=== PATIENT | male | born 1975 | race Caucasian/White ===

== ENCOUNTER 2020-04-15 11:07 | Outpatient (REF) | payer OTHER, SELFPAY ==
[2020-04-15 12:38] LABS: Alanine Aminotransferase 24 U/L (0-40); Albumin Level 4.7 g/dL (3.5-5.0); Alkaline Phosphatase 58 U/L (39-117); Anion Gap 11 (12-20); Aspartate Amino Transferase 18 U/L (5-37); Bilirubin Total 0.6 mg/dL (0.0-1.0); Blood Urea Nitrogen 17 mg/dL (9-16); Calcium 9.5 mg/dL (8.4-10.2); Carbon Dioxide 31 mmol/L (22-29); Chloride 103 mmol/L (96-108); Cholesterol 191 mg/dL; Estimated Glomerular Filt Rate > 60; Glucose Random 94 mg/dL (60-115); HDL Cholesterol 41 mg/dL; LDL Cholesterol Calculated 130 mg/dl; Sodium 140 mmol/L (135-145); Total Protein 7.9 g/dL (6.5-8.0); Triglycerides 100 mg/dL
== END 2020-04-15 11:08 | disposition home or self-care (01) ==
LOC: HO.LAB 11:07
PROVIDERS: Visit Provider Physician Assistant Medical
DX: E78.00 Pure hypercholesterolemia, unspecified (principal)
CPT/HCPCS: 80053; 80061

== ENCOUNTER 2022-11-03 13:04 | Outpatient (AMB) | payer OTHER, SELFPAY ==
--- NOTE | 2022-11-03 13:09 | A.OFFPC_ITS ---
Vital Signs 11/03/22 13:10 Height 5 ft 6 in Weight 207 lb BMI 33.4 BP 128/68 Blood Pressure Location Lt brachial Position Sitting Pulse 103 H Pulse Source Pulse Oximeter Pulse Oximetry (%) 98 Oxygen Delivery Method Room Air Intake Visit Reasons: NPV- requesting PHY Allergies No Known Allergies [No Known Allergies*] Allergy (Verified 11/03/22 13:10) Medication List - Last Reconciled 11/03/22 by Jim Prather MD almotriptan malate 12.5 mg PO Q2-4H PRN clonazepam 0.5 mg PO BID methylphenidate HCl ER 54 mg PO DAILY Tobacco use date assessed: 11/03/22 Dental Screening Dental Screen Date: 11/03/22 Did you have a dental visit in the last 12 months?: Yes Did you have a dental problem in the last 6 months where you did not have access to dental care?: No Was dental information given to patient?: Patient has dentist HPI NPV- requesting PHY HPI Details 47-year-old obese male with a history of migraine, ADHD coming in for the 1st time. Review of the notes had fall from the stairs in 2017 sustaining right multiple rib fractures patient also has a history of cholelithiasis. due to alcohol- does binge- L ear poor hearing but had test nothing to do. [facility] Medical History (Updated 11/03/22 @ 13:50 by Jim Prather MD) Multiple rib fractures Surgical History (Updated 11/03/22 @ 13:34 by Jim Prather MD) Cholelithiasis [place] teeth extracted Family History (Updated 11/03/22 @ 13:36 by Jim Prather MD) Father COPD (chronic obstructive pulmonary disease) Mother Asthma Skin cancer Maternal Grandfather Myocardial infarct Maternal Grandmother Skin cancer Breast CA Social History (Updated 11/03/22 @ 13:37 by Jim Prather MD) Housing: House Alcohol intake: current Patient Tobacco Use Status: Never used Tobacco e-Cigarette/Vaping Use: Never Used Second Hand Smoke Exposure: No Current occupational status: employed Current occupational exposures/hazards: No Cognitive needs: No Hearing needs: No Vision needs: No Questionnaire Thrive Questionnaire Date Thrive assessed: 11/03/22 I am a: Patient What is your living situation today?: I have a steady place to live Within the past 12 months, did the food you bought not last and you didn't have the money to get more?: Never true Within the past 12 months, did you worry whether your food would run out before you got money to buy more?: Never true Do you have trouble paying for medicines?: No Do you have trouble getting transportation to medical appointments?: No Do you have trouble paying your heating and electricity bill?: No Do you have trouble taking care of your child, family member or friend?: No Do you have trouble with day-to-day activities such as bathing, preparing meals, shopping, managing finances, etc.?: No Are you currently unemployed and looking for a job?: No Are you interested in more education?: No Currently or been in a relationship where the following occur: no concerns reported AUDIT C Alcohol Use Questionnaire (AUDIT-C) 1. How often do you have a drink containing alcohol?: Monthly or less 2. How many drinks containing alcohol do you have on a typical day when you are drinking?: 1 or 2 3. How often do you have six or more drinks on one occasion?: Never Total Score: 1 FRANKI-7 AMB Questionnaire FRANKI-7 Date FRANKI - 7 assessed: 11/03/22 Feeling nervous, anxious, or on edge: 1 = Several days Not being able to stop or control worryin = Not at all Worrying too much about different things: 0 = Not at all Trouble relaxin = Not at all Being so restless that it is hard to sit still: 0 = Not at all Becoming easily annoyed or irritable: 0 = Not at all Feeling afraid as if something awful might happen: 0 = Not at all Total FRANKI-7 score (0-4 normal; 5-9 mild; 10-14 moderate; 15-21 severe): 1 Source: Developed by Drs. Mendoza Stewart, Blanca Smyth, Kemal Pryor and colleagues, with an educational maggie from [employer]. Review of Systems Const Denies poor appetite and Denies weakness Eyes Denies no additional complaints ENT Reports Normal hearing present, Denies dizziness, Denies nasal congestion, Denies tinnitus and Denies sore throat Card Denies chest pain, Denies syncope, Denies rapid heart rate and Denies dyspnea Resp Denies cough and Denies dyspnea GI Denies change in stool character, Reports constipation, Denies diarrhea, Denies nausea and Denies vomiting Denies dysuria and Denies urinary frequency Neuro Reports Normal hearing present, Denies confusion, Denies dizziness, Denies syncope and Denies weakness Psych Denies confusion Physical exam (Primary Care) Vital Signs: Last Vital Signs Pulse 103 H 11/03/22 13:10 BP 128/68 11/03/22 13:10 Pulse Ox 98 11/03/22 13:10 Oxygen Delivery Method Room Air 11/03/22 13:10 Care Plan Goal for BP management: Pigment nevi on the back multiple(declined referral for Dermatology) BMI result Body Mass Index 33.4 Tobacco/Smoking Status: Tobacco use Status Tobacco use date assessed 11/03/22 11/03/22 13:21 Patient Tobacco Use Status Never used Tobacco 11/03/22 13:21 e-Cigarette/Vaping Use Never Used 11/03/22 13:21 Thrive Assessment: Date of Thrive Assessment Date Thrive assessed 11/03/22 11/03/22 13:21 Currently or been in a relationship where the following occur: no concerns reported Const General: No confusion Orientation/consciousness: No confusion HENMT Head: Yes normocephalic Ears: external ears normal and TM's normal bilaterally Face and sinus: Yes normal facial exam Mouth: moist mucous membranes Throat: Yes tonsils normal Eyes Conjunctivae: conjunctivae normal Pupils: Equal, round and reactive pupils present and Pupil accommodation reflex normal Direct Ophthalmoscopy: normal light reflex Neck Neck: No lymphadenopathy Thyroid: Thyroid normal Chest Chest palpation & inspection: normal inspection of the chest Resp Effort & Inspection: normal respiratory effort and no audible wheezes Auscultation: clear to auscultation bilaterally, no crackles, no wheezes and lung sounds not diminished Cardio Rate: regular rate Rhythm: regular rhythm Peripheral pulses: radial pulses present and dorsalis pedis present GI Other: Visual negative rectal Palpation (GI): no masses Auscultation: normal bowel sounds and normoactive bowel sounds Rectal Exam - Male: Yes deferred Male General Exam: Yes normal external exam Skin General skin exam: no rashes or lesions noted Rashes: no rashes Neuro General: No confusion Cranial nerves: Yes Equal, round and reactive pupils present and Yes Normal hearing present Cognition (Neuro): normal cognition Gait exam (Neuro): Normal gait present Motor exam (neuro): 5/5 motor strength present throughout Deep tendon reflexes (DTR's): Right brachioradialis reflex intensity grade: 2+, Left brachioradialis reflex intensity grade: 2+, Right patellar reflex intensity grade: 2+ and Left patellar reflex intensity grade: 2+ Extrem General: No edema Assessment and Plan Assessment & Plan (1) Annual physical exam: Code(s): Z00.00 - Encounter for general adult medical examination without abnormal findings (2) ADHD: Comment: Foot it Code(s): F90.9 - Attention-deficit hyperactivity disorder, unspecified type (3) Hypercholesterolemia: Code(s): E78.00 - Pure hypercholesterolemia, unspecified Plan: Avoid fried foods, chicken skin, eggs, butter margarine, pastries and meat. Be it pork or beef they have a lot of cholesterol LDL goal of less than 130 and triglyceride of less than 150 (4) Obesity (BMI 30-39.9): Code(s): E66.9 - Obesity, unspecified Plan: Diet and exercise (5) Migraine: Code(s): G43.909 - Migraine, unspecified, not intractable, without status migrainosus Plan: Keep well hydrated continue with medication (6) Colon cancer screening: Code(s): Z12.11 - Encounter for screening for malignant neoplasm of colon (7) Recurrent major depression: Comment: foot it Code(s): F33.9 - Major depressive disorder, recurrent, unspecified (8) Generalized anxiety disorder: Comment: footit Code(s): F41.1 - Generalized anxiety disorder (9) Cough: Code(s): R05.9 - Cough, unspecified Orders: Orders Vitamin B12 and Folate Today E78.00 - Pure hypercholesterolemia, unspecified Comprehensive Met. Panel Today E78.00 - Pure hypercholesterolemia, unspecified Lipid Panel Today E78.00 - Pure hypercholesterolemia, unspecified Free T4 (Free Thyroxine) Today E78.00 - Pure hypercholesterolemia, unspecified Thyroid Stimulating Hormone Today E78.00 - Pure hypercholesterolemia, unspecified Complete Blood Count Auto Diff Today E78.00 - Pure hypercholesterolemia, unspecified XR chest 2V Today R05.9 - Cough, unspecified ECG 12 lead EKG Today F90.9 - Attention-deficit hyperactivity disorder, unspecified type Referrals Gastroenterology Referral Z12.11 - Encounter for screening for malignant neoplasm of colon Medications: New almotriptan malate 12.5 mg PO .QD PRN 12 tabs 5RF migraine headache G43.909 - Migraine, unspecified, not intractable, without status migrainosus Coding Level of Care Code New Pt Prev Care 40-64y(52114) Diagnoses Annual physical exam Z00.00 ADHD F90.9 Hypercholesterolemia E78.00 Obesity (BMI 30-39.9) E66.9 Migraine G43.909 Colon cancer screening Z12.11 Recurrent major depression F33.9 Generalized anxiety disorder F41.1 Cough R05.9
[2022-11-03 13:10] VITALS: BP 128/68; PULSE 103; O2SAT 98; BMI 33.4
== END 2022-11-03 14:12 | disposition home or self-care (01) ==
PROVIDERS: PCP Internal Medicine; Visit Provider Internal Medicine
DX: Z00.00 Encounter for general adult medical examination without abnormal findings (principal); F90.9 Attention-deficit hyperactivity disorder, unspecified type; E66.9 Obesity, unspecified; Z68.33 Body mass index [BMI] 33.0-33.9, adult; F33.9 Major depressive disorder, recurrent, unspecified; G43.909 Migraine, unspecified, not intractable, without status migrainosus; E78.00 Pure hypercholesterolemia, unspecified; Z12.11 Encounter for screening for malignant neoplasm of colon; F41.1 Generalized anxiety disorder; R05.9 Cough, unspecified
CPT/HCPCS: 99386

== ENCOUNTER 2023-02-22 07:24 | Outpatient (REF) | payer OTHER, SELFPAY ==
--- NOTE | ~2023-02-22 | XR_ITS ---
EXAMINATION: XR CHEST CLINICAL INFORMATION: Cough COMPARISON: None available. TECHNIQUE: 2 views of the chest were obtained. FINDINGS: No significant abnormality is noted involving the heart, lungs, mediastinum, bony thorax or soft tissues. XR/XR chest 2V IMPRESSION: Normal chest x-ray.
--- NOTE | 2023-02-22 08:28 | ECG_ITS ---
Test Reason : ATTENTION DEF D/O Blood Pressure : / mmHG Vent. Rate : 066 BPM Atrial Rate : 066 BPM P-R Int : 182 ms QRS Dur : 086 ms QT Int : 404 ms P-R-T Axes : 030 012 015 degrees QTc Int : 423 ms Normal sinus rhythm Normal ECG When compared with ECG of 27-MAR-2014 07:28, No significant change was found Referred By: Jim Prather Electronically Signed By:HALIMA MULLEN MD
== END 2023-02-22 07:25 | disposition home or self-care (01) ==
LOC: HO.XRAY 07:24
PROVIDERS: PCP Internal Medicine; Visit Provider Physician Assistant
DX: R05.9 Cough, unspecified (principal); F90.9 Attention-deficit hyperactivity disorder, unspecified type
CPT/HCPCS: 71046; 93005

== ENCOUNTER 2023-02-22 07:24 | Outpatient (AMB) | payer OTHER, SELFPAY ==
[2023-02-22 07:45] VITALS: BP 146/83; PULSE 79; BMI 33.9
--- NOTE | 2023-02-22 07:45 | MHC.OFFVIS ---
Intake Vital Signs 02/22/23 07:45 Height 5 ft 6 in Weight 210 lb BMI 33.9 BP 146/83 H Blood Pressure Location Lt brachial Position Sitting Pulse 79 Intake Visit Reasons: Colonoscopy screening Intake Note: Patient 1st pre colonoscopy screening. Patient denies any GI issues. 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 No ardiac issues. Having CXR- ordered by pcp-cough No N/V/D abdominal pain, fever or chills PFSH Medical History Multiple rib fractures Surgical History [place] teeth extracted Cholelithiasis Family History Father COPD (chronic obstructive pulmonary disease) Mother Asthma Skin cancer Maternal Grandfather Myocardial infarct Maternal Grandmother Skin cancer Breast CA Social History Housing: House Alcohol intake: current Patient Tobacco Use Status: Never used Tobacco e-Cigarette/Vaping Use: Never Used Second Hand Smoke Exposure: No Current occupational status: employed Current occupational exposures/hazards: No Cognitive needs: No Hearing needs: No Vision needs: No Review of Systems Const All systems reviewed & are unremarkable except as noted in HPI and below Card Denies chest pain Resp Reports cough GI Denies abdominal pain, Denies bloating, Denies hematochezia, Denies change in bowel habits, Denies heartburn, Denies nausea and Denies vomiting Physical Exam Vital Signs: Last Vital Signs Pulse 79 02/22/23 07:45 BP 146/83 H 02/22/23 07:45 BMI result Body Mass Index 33.9 Const General: cooperative, healthy appearing, comfortable and no acute distress Orientation/consciousness: patient oriented x3 Limitations: no limitations Eyes Sclerae: sclerae normal Resp Effort & Inspection: normal respiratory effort and able to speak in complete sentences Auscultation: clear to auscultation bilaterally, no rales, no rhonchi and no wheezes Cardio Rate: regular rate Rhythm: regular rhythm Heart sounds: S1 normal heart sound present and S2 normal heart sound present GI Palpation (GI): Soft to palpation and nontender Auscultation: normal bowel sounds Skin General skin exam: no rashes or lesions noted Neuro General: patient oriented x3 Extrem General: Yes full ROM Psych Appearance: grossly normal and well kempt Mental Status: mental status grossly normal Speech and movement: Normal speech and movement present and Clear speech present Affect: normal affect Attitude: cooperative Thought process: Normal thought process present Thought content: Normal thought content present Insight: Good insight present (Psych) Judgement: Good judgement present (Psych) Assessment & Plan Assessment & Plan (1) Colon cancer screening: Comment: index screening colonoscopy- mg prep getting CXR- updated date- be sure pcp has result- Code(s): Z12.11 - Encounter for screening for malignant neoplasm of colon Plan colonoscopy- MG prep Orders: Orders Colonoscopy - GI Use Only Today Z12.11 - Encounter for screening for malignant neoplasm of colon XR chest 2V Today R05.9 - Cough, unspecified Medications: New bisacodyl (Dulcolax (bisacodyl)) Day before procedure, prep day Take 4 tablets by mouth upon awakening followed by large glass of water 20 mg (4 x 5 mg) PO ONCE 1 day 4 tabs 0RF colonoscopy prep Z12.11 - Encounter for screening for malignant neoplasm of colon polyethylene glycol 3350 (Miralax) Take as directed by mouth the day before your procedure. 238 grams PO ONCE 1 day PRN 238 grams 0RF laxative effect hydrocortisone 2.5% (Proctosol HC) 1 appl [place] BEDTIME PRN 30 grams 3RF hemorrhoids Patient Instructions: colonoscopy-disc procedure, rare risks,need for escort MG prep Call with concerns Coding Level of Care Code New Pt Level 3 (70932) Diagnoses Colon cancer screening Z12.11 Time Spent (min) 30
== END 2023-02-22 08:34 | disposition home or self-care (01) ==
PROVIDERS: PCP Internal Medicine; Visit Provider Physician Assistant
DX: Z12.11 Encounter for screening for malignant neoplasm of colon (principal); Z01.818 Encounter for other preprocedural examination
CPT/HCPCS: 99203

== ENCOUNTER 2023-09-05 06:44 | Day surgery (SDC) | payer OTHER, SELFPAY ==
--- NOTE | 2023-09-01 14:37 | HO.ANESPROP2 ---
Documented by User: Karime Villela NP 09/01/23 14:37 HPI - Anesthesia Eval Consult details Narrative: 48yo M for Colonoscopy PMFSH Active Problems Active Problems: All Active Problems Cough (Acute) Vision changes (Acute) Recurrent major depression (Acute) Generalized anxiety disorder (Acute) Colon cancer screening (Acute) Migraine (Acute) Obesity (BMI 30-39.9) (Acute) Hypercholesterolemia (Acute) ADHD (Acute) Annual physical exam (Acute) Past Medical History Medical History ADHD Multiple rib fractures Family History Family History Father COPD (chronic obstructive pulmonary disease) Mother Asthma Skin cancer Maternal Grandfather Myocardial infarct Maternal Grandmother Skin cancer Breast CA Surgical History Surgical History [place] teeth extracted Cholelithiasis Social History Social History Housing: House Alcohol intake: current Patient Tobacco Use Status: Never used Tobacco e-Cigarette/Vaping Use: Never Used Second Hand Smoke Exposure: No Use of substances other than those prescribed or required for medical reasons: No Are you DNR?: No Advance Directives: No Advance Directives Information Provided: Yes Current occupational status: employed Current occupational exposures/hazards: No Cognitive needs: No Hearing needs: No Vision needs: No Meds Allergies Allergy/AdvReac Type Severity Reaction Status Date / Time No Known Allergies Allergy Verified 02/22/23 07:44 [No Known Allergies*] Home Medications ?Medication ?Instructions ?Recorded ?Confirmed ?Last Taken ?Type clonazepam 0.5 mg tablet 0.5 mg PO BID 11/03/22 09/05/23 Unknown History methylphenidate HCl 54 mg 54 mg PO DAILY 11/03/22 09/05/23 Unknown History tablet,extended release 24 hr Assessment and Plan Assessment Anesthesia Assessment: Chart Reviewed Documented by User: Sadia Gibson MD 09/05/23 07:30 [facility] Past Medical History Medical History ADHD Multiple rib fractures Family History Family History Father COPD (chronic obstructive pulmonary disease) Mother Asthma Skin cancer Maternal Grandfather Myocardial infarct Maternal Grandmother Skin cancer Breast CA Family history of problems with anesthesia: No Surgical History Surgical History [place] teeth extracted Cholelithiasis History of Problems with Anesthesia: No Social History Social History Housing: House Alcohol intake: current Patient Tobacco Use Status: Never used Tobacco e-Cigarette/Vaping Use: Never Used Second Hand Smoke Exposure: No Use of substances other than those prescribed or required for medical reasons: No Are you DNR?: No Advance Directives: No Advance Directives Information Provided: Yes Current occupational status: employed Current occupational exposures/hazards: No Cognitive needs: No Hearing needs: No Vision needs: No Meds Allergies Allergy/AdvReac Type Severity Reaction Status Date / Time No Known Allergies Allergy Verified 02/22/23 07:44 [No Known Allergies*] Home Medications ?Medication ?Instructions ?Recorded ?Confirmed ?Last Taken ?Type clonazepam 0.5 mg tablet 0.5 mg PO BID 11/03/22 09/05/23 Unknown History methylphenidate HCl 54 mg 54 mg PO DAILY 11/03/22 09/05/23 Unknown History tablet,extended release 24 hr Exam Airway Mallampati Class: II TM Dist: >3cm Neck ROM: Full Heart: rrr Lungs: cta Assessment and Plan Assessment Anesthesia Assessment: Anesthesia Plan Discussed Final Anesthetic Review Family History of Problems with Anesthesia: No History of Problems with Anesthesia: No NPO: Yes ASA Class: III Final Preanesthetic Review: No Changes in Pt Med Stat, Meds/Allgs Chart Reviewed, Consent Obtained/Reviewed and Anes Risks/Benef Reviewed Patient Risk: Intermediate Procedure Risk: Low Anesthetic Plan Anesthetic Plan: MAC: Disposition: Standard PACU
[2023-09-05 07:11] VITALS: BMI 34.7
[2023-09-05 07:14] VITALS: BP 126/87; PULSE 102; RESP 18; TEMP 36.1; O2SAT 97
[2023-09-05] MEDS: Lactated Ringers 1,000 ML 100 ML IVCONT (07:30)
--- NOTE | 2023-09-05 08:18 | MHC.SHP ---
Pre-Procedural Eval Section A - 24 Hr Update-Section A only Date of Service: 09/05/23 Section B - Complete if H&P > 30 days Chief Complaint: screening Relevant Family History (Specify if Yes): No Relevant Social History: None Present Medications: see Short Stay Collaborative assessment Medical History: Significant History (Multiple rib fractures,adhd) History of Previous Operations: Relevant previous surgery/procedure and date(s) ([place] teeth extracted Cholelithiasis) Allergies: Allergies Allergy/AdvReac Type Severity Reaction Status Date / Time No Known Allergies Allergy Verified 02/22/23 07:44 [No Known Allergies*] Review of Systems Sugical H&P ROS: Negative: Constitution, Cardiovascular, Respiratory, Neurological, Psychiatric, Hem-Onc, Allergic/Immunologic, Gastrointestinal, Genitourinary, Musculoskeletal, Integumentary, Endocrine and Eyes/Ears/Nose/Throat Exam Surgical H&P Exam: Normal: HEENT, Normal: Heart, Normal: Lungs, Normal: Extremities, Normal: Abdomen, Normal: Skin and Normal: Neurological Plan Diagnosis/Plan: Unchanged I have reviewed the history and physical and performed a pertinent physical examination on my patient. No changes have occurred unless specified. Time Spent With Patient Time: Total time managing care of this patient today ____ minutes.
--- NOTE | 2023-09-05 08:20 | W.PM.OPN ---
Operative Note Operative Note Date of Service: 09/05/23 Narrative: Operative Information Procedure Description: Colonoscopy Indication: screening Anesthesia: MAC COLONOSCOPY Instrument: Olympus variable stiffness pediatric scope 190L Colonoscopy Monitoring: Vital signs and clinical assessment, continuous EKG monitoring, Pulse oximetry, Carbon Dioxide monitoring and blood pressure monitoring were done throughout the procedure. Colon withdrawal time was 10 minutes. Procedure: The patient was placed in the left lateral decubitis position and pre-procedure medications were administered. After a digital rectal examination of the ano-rectum, the video colonoscope was inserted into the rectum and advanced through the colon to the cecum/TI. The colonoscope was slowly withdrawn in a retrograde panoramic fashion and the colon mucosa was carefully examined including a retroflexed view of the rectum. Findings and interventions are described below. Procedure Difficulty: moderate, pressure applied LUQ Findings: Terminal Ileum-not intubated Cecum:normal Ascending Colon: normal Transverse Colon -normal Descending Colon:normal Sigmoid Colon: normal Rectum: Retroflexion with medium sized internal hemorrhoids seen, grade I Anorectum - normal Intervention: none Colon preparation: [place] Bowel Preparation Scale Right colon; 1-2 Transverse colon: 2 Left colon; 2 (0 = Unprepared colon segment with mucosa not seen due to solid stool that cannot be cleared. 1 = Portion of mucosa of the colon segment seen, but other areas of the colon segment not well seen due to staining, residual stool and/or opaque liquid. 2 = Minor amount of residual staining, small fragments of stool and/or opaque liquid, but mucosa of colon segment seen well. 3 = Entire mucosa of colon segment seen well with no residual staining, small fragments of stool or opaque liquid) Impression and Post Procedure Diagnosis: internal hemorrhoids Plan: High fiber diet leaflet Avoid straining at stool, epsom salts and sitz bath, anusol supps or cream Repeat Colonoscopy in 5-6 years due to fair prep right side or earlier if clinically indicated Above findings were reviewed with the patient and relevant handouts were provided if indicated.
[2023-09-05 09:00] VITALS: BP 95/72; PULSE 87; RESP 16; TEMP 36.1; O2SAT 96
[2023-09-05 09:15] VITALS: BP 104/77; PULSE 90; RESP 16; TEMP 36.1; O2SAT 96
== END 2023-09-05 09:53 | disposition home or self-care (01) ==
PROVIDERS: PCP Internal Medicine; Visit Provider Internal Medicine Gastroenterology
PROC: 0DJD8ZZ Inspection of Lower Intestinal Tract, Via Natural or Artificial Opening Endoscopic (ICD-10-PCS; CPT 45378; principal; 2023-09-05 08:20)
DX: Z12.11 Encounter for screening for malignant neoplasm of colon (principal); K64.0 First degree hemorrhoids
CPT/HCPCS: 45378; J2704

== ENCOUNTER → 2023-09-05 06:44 | Outpatient (BNV) | payer OTHER, SELFPAY | PROVIDERS: PCP Internal Medicine; Visit Provider Internal Medicine Gastroenterology | DX: Z12.11 Encounter for screening for malignant neoplasm of colon (principal); K64.0 First degree hemorrhoids | CPT/HCPCS: 45378 ==

== ENCOUNTER 2023-09-18 07:16 | Outpatient (AMB) | payer OTHER, SELFPAY ==
[2023-09-18 07:30] VITALS: BP 138/90; PULSE 93; BMI 33.9
--- NOTE | 2023-09-18 07:30 | A.OFFVIS_ITS ---
Vital Signs 09/18/23 07:30 Height 5 ft 6 in Weight 210 lb BMI 33.9 BP 138/90 H Blood Pressure Location Lt brachial Position Sitting Pulse 93 Intake Visit Reasons: s/p colon [place] Intake Note: Patient follow up for Colonoscopy results. patient denies any GI issues. 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 Accompanied by: Self / Same As Patient Allergies No Known Allergies [No Known Allergies*] Allergy (Verified 09/18/23 07:31) Medication List - Last Reconciled 09/18/23 by Dorothy La PA-C almotriptan malate 12.5 mg PO .QD PRN clonazepam 0.5 mg PO BID hydrocortisone 2.5% (Proctosol HC) 1 appl [place] BEDTIME PRN methylphenidate HCl ER 54 mg PO DAILY HPI Comments Details: Year old male follows up after index screening colonoscopy He tolerated procedure well Bowels are Appetite is good Reviewed procedure report, recommendation Known hemorrhoids happened been non issue No nausea, vomiting, hematemesis, hematochezia fever PFSH Medical History (Updated 09/18/23 @ 08:13 by Dorothy La PA-C) ADHD Multiple rib fractures Surgical History Hx of colonoscopy [place] teeth extracted Cholelithiasis Family History Father COPD (chronic obstructive pulmonary disease) Mother Asthma Skin cancer Maternal Grandfather Myocardial infarct Maternal Grandmother Skin cancer Breast CA Social History Housing: House Alcohol intake: current Patient Tobacco Use Status: Never used Tobacco e-Cigarette/Vaping Use: Never Used Second Hand Smoke Exposure: No Current occupational status: employed Current occupational exposures/hazards: No Cognitive needs: No Hearing needs: No Vision needs: No Review of Systems Const All systems reviewed & are unremarkable except as noted in HPI and below Physical Exam Vital Signs: Last Vital Signs Pulse 93 09/18/23 07:30 BP 138/90 H 09/18/23 07:30 BMI result Body Mass Index 33.9 Const General: cooperative, healthy appearing, comfortable and no acute distress Orientation/consciousness: patient oriented x3 Limitations: no limitations Neuro General: patient oriented x3 Psych Appearance: well kempt Mental Status: mental status grossly normal Speech and movement: Clear speech present Affect: normal affect Attitude: cooperative Thought process: Normal thought process present Thought content: Normal thought content present Insight: Good insight present (Psych) Judgement: Good judgement present (Psych) Assessment & Plan Assessment & Plan (1) Hemorrhoids: Code(s): K64.9 - Unspecified hemorrhoids Category: Medical Plan: Avoid straining Maintain high-fiber Plan Repeat asymptomatic colonoscopy 5 years-reminder to be placed Patient Instructions: Repeat asymptomatic colonoscopy 5 years Maintain high-fiber diet Avoid straining with hemorrhoid Call with concerns Coding Level of Care Code Est Pt Level 3 (10720) Diagnoses Hemorrhoids K64.9 Time Spent (min) 15
== END 2023-09-18 08:24 | disposition home or self-care (01) ==
PROVIDERS: PCP Internal Medicine; Visit Provider Physician Assistant
DX: K64.9 Unspecified hemorrhoids (principal)
CPT/HCPCS: 99213

== ENCOUNTER → 2023-09-18 07:16 | Outpatient (BNVA) | payer OTHER, SELFPAY | PROVIDERS: PCP Internal Medicine; Visit Provider Physician Assistant ==

== ENCOUNTER 2023-11-08 12:27 | Outpatient (AMB) | payer BC, SELFPAY ==
[2023-11-08 12:36] VITALS: BP 118/78; PULSE 94; O2SAT 98; BMI 34.7
--- NOTE | 2023-11-08 12:36 | A.OFFPC_ITS ---
Vital Signs 11/08/23 12:36 Height 5 ft 6 in Weight 215 lb BMI 34.7 BP 118/78 Blood Pressure Location Lt brachial Position Sitting Pulse 94 Pulse Source Pulse Oximeter Pulse Oximetry (%) 98 Oxygen Delivery Method Room Air Intake Visit Reasons: pe Allergies No Known Allergies [No Known Allergies*] Allergy (Verified 11/08/23 12:36) Medication List - Last Reconciled 11/08/23 by Jim Prather MD almotriptan malate 12.5 mg PO .QD PRN clonazepam 0.5 mg PO BID hydrocortisone 2.5% (Proctosol HC) 1 appl [place] BEDTIME PRN methylphenidate HCl ER 54 mg PO DAILY Tobacco use date assessed: 11/08/23 Dental Screening Dental Screen Date: 11/08/23 Did you have a dental visit in the last 12 months?: Yes Did you have a dental problem in the last 6 months where you did not have access to dental care?: No Was dental information given to patient?: Patient has dentist HPI pe HPI Details 48-year-old obese male with hypercholest erolemia migraine recurrent major depression coming in for physical exam last seen in October 2022. Patient is up-to-date with colonoscopy but due to the fair prep advised to repeat in 5-6 years. . nausea once amonth. once a month gerd. Patient has mentioned that the therapist/nurse practitioner who has been taking care of his anxiety and depression medication is soon to be retiring. And was asking for me to take over. Discussed with the patient that I would really need the letter from him as well as basically discussed with him the role of clonazepam. Patient also was found to have alcohol abuse and discussed with him that this needs to stop. He has been using alcohol to help him with sleep and finishes 30 bottles of beer in 1 and half weeks. [facility] Medical History (Updated 11/08/23 @ 13:17 by Jim Prather MD) Cough Colon cancer screening ADHD Multiple rib fractures Surgical History Hx of colonoscopy [place] teeth extracted Cholelithiasis Family History Father COPD (chronic obstructive pulmonary disease) Mother Asthma Skin cancer Maternal Grandfather Myocardial infarct Maternal Grandmother Skin cancer Breast CA Social History (Updated 11/08/23 @ 12:57 by Jim Prather MD) Housing: House Alcohol intake: current Comment: QD alcohol 30 drinks 1.5 weeks Patient Tobacco Use Status: Never used Tobacco Tobacco use type: Cigarette e-Cigarette/Vaping Use: Never Used Second Hand Smoke Exposure: No Current occupational status: employed Current occupational exposures/hazards: No Cognitive needs: No Hearing needs: No Vision needs: Yes Questionnaire PHQ-9 Over the last 2 weeks, how often have you been bothered by any of the following problems? 1. Little interest or pleasure in doing things: not at all 2. Feeling down, depressed, or hopeless: not at all 3. Trouble falling or staying asleep, or sleeping too much: not at all 4. Feeling tired or having little energy: not at all 5. Poor appetite or overeating: not at all 6. Feeling bad about yourself - or that you are a failure or have let yourself or your family down: not at all 7. Trouble concentrating on things, such as reading the newspaper or watching television: not at all 8. Moving or speaking so slowly that other people could have noticed. Or the opposite - being so fidgety or restless that you have been moving around a lot more than usual: not at all 9. Thoughts that you would be better off or of hurting yourself in some way: not at all Total score: 0 Depression Screening Interpretation: Negative Depression Screening Done: Yes Source: Developed by Drs. Mendoza Stewart, Blanca Smyth, Kemal Pryor and colleagues, with an educational maggie from [employer]. Thrive Questionnaire Date Thrive assessed: 11/08/23 I am a: Patient What is your living situation today?: I have a steady place to live Within the past 12 months, did the food you bought not last and you didn't have the money to get more?: Never true Within the past 12 months, did you worry whether your food would run out before you got money to buy more?: Never true Do you have trouble paying for medicines?: No Do you have trouble getting transportation to medical appointments?: No Do you have trouble paying your heating and electricity bill?: No Do you have trouble taking care of your child, family member or friend?: No Do you have trouble with day-to-day activities such as bathing, preparing meals, shopping, managing finances, etc.?: No Are you currently unemployed and looking for a job?: No Are you interested in more education?: No Currently or been in a relationship where the following occur: No concerns reported THRIVE Score: 0 AUDIT C Alcohol Use Questionnaire (AUDIT-C) 1. How often do you have a drink containing alcohol?: Monthly or less 2. How many drinks containing alcohol do you have on a typical day when you are drinking?: 1 or 2 3. How often do you have six or more drinks on one occasion?: Never Total Score: 1 FRANKI-7 AMB Questionnaire FRANKI-7 Date FRANKI - 7 assessed: 11/08/23 Feeling nervous, anxious, or on edge: 1 = Several days Not being able to stop or control worryin = Not at all Worrying too much about different things: 0 = Not at all Trouble relaxin = Several days Being so restless that it is hard to sit still: 0 = Not at all Becoming easily annoyed or irritable: 0 = Not at all Feeling afraid as if something awful might happen: 0 = Not at all Total FRANKI-7 score (0-4 normal; 5-9 mild; 10-14 moderate; 15-21 severe): 2 Source: Developed by Drs. Mendoza Stewart, Blanca Smyth, Kemal Pryor and colleagues, with an educational maggie from [employer]. Review of Systems Const Denies poor appetite and Denies weakness Eyes Denies no additional complaints ENT Reports Normal hearing present, Denies dizziness, Denies nasal congestion, Denies tinnitus and Denies sore throat Card Denies chest pain, Denies syncope, Denies rapid heart rate and Denies dyspnea Resp Denies cough and Denies dyspnea GI Denies change in stool character, Reports constipation, Denies diarrhea, Denies nausea and Denies vomiting Denies dysuria and Denies urinary frequency Neuro Reports Normal hearing present, Denies confusion, Denies dizziness, Denies syncope and Denies weakness Psych Denies confusion Physical exam (Primary Care) Vital Signs: Last Vital Signs Pulse 94 11/08/23 12:36 BP 118/78 11/08/23 12:36 Pulse Ox 98 11/08/23 12:36 Oxygen Delivery Method Room Air 11/08/23 12:36 BMI result Body Mass Index 34.7 Tobacco/Smoking Status: Tobacco use Status Tobacco use date assessed 11/08/23 11/08/23 12:41 Patient Tobacco Use Status Never used Tobacco 11/08/23 12:57 Tobacco use type Cigarette 11/08/23 12:57 e-Cigarette/Vaping Use Never Used 11/08/23 12:57 PHQ-9: PHQ-9 Score PHQ-9: Total score 0 11/08/23 13:01 Depression Screening Interpretation: Negative Thrive Assessment: Date of Thrive Assessment Date Thrive assessed 11/08/23 11/08/23 12:41 Currently or been in a relationship where the following occur: No concerns reported Const General: No confusion Orientation/consciousness: No confusion HENMT Head: Yes normocephalic Ears: external ears normal and TM's normal bilaterally Face and sinus: Yes normal facial exam Mouth: moist mucous membranes Throat: Yes tonsils normal Eyes Conjunctivae: conjunctivae normal Pupils: Equal, round and reactive pupils present and Pupil accommodation reflex normal Direct Ophthalmoscopy: normal light reflex Neck Neck: No lymphadenopathy Thyroid: Thyroid normal Chest Chest palpation & inspection: normal inspection of the chest Resp Effort & Inspection: normal respiratory effort and no audible wheezes Auscultation: clear to auscultation bilaterally, no crackles, no wheezes and lung sounds not diminished Cardio Rate: regular rate Rhythm: regular rhythm Peripheral pulses: radial pulses present and dorsalis pedis present GI Palpation (GI): no masses Auscultation: normal bowel sounds and normoactive bowel sounds Rectal Exam - Male: Yes deferred Skin General skin exam: no rashes or lesions noted Rashes: no rashes Neuro General: No confusion Cranial nerves: Yes Equal, round and reactive pupils present and Yes Normal hearing present Cognition (Neuro): normal cognition Gait exam (Neuro): Normal gait present Motor exam (neuro): 5/5 motor strength present throughout Deep tendon reflexes (DTR's): Right brachioradialis reflex intensity grade: 2+, Left brachioradialis reflex intensity grade: 2+, Right patellar reflex intensity grade: 2+ and Left patellar reflex intensity grade: 2+ Extrem General: No edema Assessment and Plan Assessment & Plan (1) Annual physical exam: Code(s): Z00.00 - Encounter for general adult medical examination without abnormal findings Plan: Patient is advised to eat healthy, keep well hydrated, keep active and have adequate sleep. (2) ADHD: Comment: Foot it Code(s): F90.9 - Attention-deficit hyperactivity disorder, unspecified type Plan: Continue to follow-up with psychiatric care (3) Hypercholesterolemia: Code(s): E78.00 - Pure hypercholesterolemia, unspecified Plan: Avoid fried foods, chicken skin, eggs, butter margarine, pastries and meat. Be it pork or beef they have a lot of cholesterol ASCVD 10 year risk 2.3 % (4) Migraine: Code(s): G43.909 - Migraine, unspecified, not intractable, without status migrainosus Plan: Continue with migraine medication as needed (5) Obesity (BMI 30-39.9): Code(s): E66.9 - Obesity, unspecified Plan: Diet and exercise (6) Recurrent major depression: Comment: foot it Code(s): F33.9 - Major depressive disorder, recurrent, unspecified Plan: Continue with counseling and therapy. Advised to get notes from counsellow (7) Insomnia: Code(s): G47.00 - Insomnia, unspecified Plan: trazodone prescrition sent (8) Alcohol abuse: Code(s): F10.10 - Alcohol abuse, uncomplicated Plan: Discussed with him the need to abstain from this specially with a benzodiazepine. Patient has ask for another medication to help with sleep as he has been using the alcohol for this. Orders: Orders Complete Blood Count Auto Diff Today E78.00 - Pure hypercholesterolemia, unsp ecified Free T4 (Free Thyroxine) Today E78.00 - Pure hypercholesterolemia, unspecified Thyroid Stimulating Hormone Today E78.00 - Pure hypercholesterolemia, unspecified Lipid Panel Today E78.00 - Pure hypercholesterolemia, unspecified Comprehensive Met. Panel Today E78.00 - Pure hypercholesterolemia, unspecified Vitamin B12 and Folate Today E78.00 - Pure hypercholesterolemia, unspecified Medications: New trazodone 50 mg PO BEDTIME PRN 30 tabs 1RF sleep G47.00 - Insomnia, unspecified Coding Level of Care Code Est Pt Prev Care 40-64y(25907) Diagnoses Annual physical exam Z00.00 ADHD F90.9 Hypercholesterolemia E78.00 Migraine G43.909 Obesity (BMI 30-39.9) E66.9 Recurrent major depression F33.9 Insomnia G47.00 Alcohol abuse F10.10
== END 2023-11-08 13:18 | disposition home or self-care (01) ==
PROVIDERS: PCP Internal Medicine; Visit Provider Internal Medicine
DX: Z00.00 Encounter for general adult medical examination without abnormal findings (principal); F33.9 Major depressive disorder, recurrent, unspecified; F90.9 Attention-deficit hyperactivity disorder, unspecified type; E78.00 Pure hypercholesterolemia, unspecified; G43.909 Migraine, unspecified, not intractable, without status migrainosus; E66.9 Obesity, unspecified; G47.00 Insomnia, unspecified; F10.10 Alcohol abuse, uncomplicated
CPT/HCPCS: 99396

== ENCOUNTER 2024-03-08 13:15 | Outpatient (REF) | payer BC, SELFPAY ==
[2024-03-08 14:49] LABS: MANUAL DIFF FLAG NO
[2024-03-08 15:21] LABS: Basophils Percent Auto 0.4 % (0-2); Eosinophils Absolute Auto 0.1 X10*3/uL (0.0-0.4); Hematocrit 47.8 % (42.0-52.0); Hemoglobin 16.1 g/dl (14.0-18.0); Imm Gran Abs Auto 0.05 X10*3/uL (0.00-0.03); Imm Gran Pct Auto 0.5 % (0.0-0.4); Lymphocytes Absolute Auto 1.7 X10*3/uL (1.2-4.9); Lymphocytes Percent Auto 17.8 % (20-40); Mean Corpuscular HGB Conc 33.7 g/dl (31.0-36.0); Mean Corpuscular Hemoglobin 30.3 pg (27.0-33.0); Mean Corpuscular Volume 89.8 fL (80.0-98.0); Mean Platelet Volume 11.5 fL (9.4-12.4); Monocytes Absolute Auto 0.9 X10*3/uL (0.1-1.2); Monocytes Percent Auto 9.1 % (2-11); Neutrophils Absolute Auto 6.9 x10*3/uL (2.0-8.3); Neutrophils Percent Auto 71.2 % (45-73); Platelet Count 297 X10*3/uL (160-400); Red Blood Count 5.32 X10*6/uL (4.60-5.80); Red Cell Distribution Width 12.3 % (11.0-16.0); White Blood Count 9.7 X10*3/uL (4.8-10.8)
[2024-03-08 16:24] LABS: Alanine Aminotransferase 49 U/L (0-40); Albumin Level 4.7 g/dL (3.5-5.0); Anion Gap 12 (12-20); Aspartate Amino Transferase 34 U/L (5-37); Bilirubin Total 0.6 mg/dL (0.0-1.0); Blood Urea Nitrogen 10 mg/dL (9-16); Carbon Dioxide 28 mmol/L (22-29); Chloride 102 mmol/L (96-108); Cholesterol 194 mg/dL (<200); Estimated Glomerular Filt Rate > 60; Glucose Random 86 mg/dL (60-115); HDL Cholesterol 41 mg/dL (>40); LDL Cholesterol Calculated 135 mg/dL (<100); Potassium 4.2 mmol/L (3.3-5.1); Sodium 138 mmol/L (135-145); Total Protein 7.4 g/dL (6.5-8.0); Triglycerides 93 mg/dL (<150)
[2024-03-08 16:36] LABS: Alkaline Phosphatase 55 U/L (39-117); Free T4 (Free Thyroxine) 1.08 ng/dL (0.71-1.85); Thyroid Stimulating Hormone 2.16 uIU/mL (0.32-4.0)
[2024-03-08 16:39] LABS: Folate 10.6 ng/mL (> or = 4.0); Vitamin B12 631 pg/mL (200-900)
== END 2024-03-08 13:16 | disposition home or self-care (01) ==
LOC: HO.LAB 13:15
PROVIDERS: PCP Internal Medicine; Visit Provider Internal Medicine
DX: E78.00 Pure hypercholesterolemia, unspecified (principal)
CPT/HCPCS: 36415; 80053; 80061; 82607; 82746; 84439; 84443; 85025

== ENCOUNTER 2024-03-28 08:11 | Outpatient (REF) | payer BC, SELFPAY ==
--- OUTSIDE RECORDS SUMMARY | 2024-03-28 08:15 | XMS_ITS | Data Portability ---
Author Organization [facility], Main Office Address [address] [facility] [address] [place] [id number] Care Team Providers Care Bleaching Supervisor Name Role Phone LOUANN PRUITT Primary Care Provider [phone] Assessment Encounter Date Assessment Date Assessment LastModified by Organization Details LastModified Time 09/13/2019 09/13/2019 This service was provided using telemedicine. Patient consented to video & audio visit Patient was located at at home Provider was located in the office. No other persons participated in the telemedicine visit except for the patient unless otherwise indicated here. Total time of visit was 35 minutes. Not available 09/13/2019 15:33:05 Plan of Treatment Reminders Order Date Submit Date Provider Last Modified By Organization Details Last Modified Time Details Appointments None record ed. Lab CBC w/ auto diff 2019 020 [facility], [address] [facility], [facility], [place], [address], 0 10:23:51 hepati c functi on panel, serum 2019 020 ANDREE [facility], [address] [facility], [facility], [place], [address], 0 10:51:55 lipase , serum or plasma 2019 020 ANDREE [facility], [address] , [facility], [place], [address], 0 10:51:56 H pylori igm+ig g+iga Ab, serum 2019 020 ANDREE [facility], [address], [address], [place], [address], 0 09:17:53 lipid panel, serum [email or web address], [address] [place] [address], [address], 0 15:07:05 CMP, serum or plasma [address], [address] [place] [address], [address], 0 15:07:05 lipid panel, serum 2019 020 [facility], [address] [place] [address], [address], 0 11:36:53 CMP, serum or plasma 2019 020 [facility], [address] [place] [address], [address], 0 11:36:53 Referral nutrit ionist /dieti shine referr al 2019 020 [email or web address] Not available 0 10:04:19 otolar yngolo gist referr al - Sensat ion of discom fort in the anteri or neck/t rachea on swallo wing saliva . 2022 023 [email or web address] [facility] , [address], [address], [place], [address], 3 10:38:13 Procedures None record ed. Surgeries None record ed. Imaging electr rosalba albarado 2020 021 In-Office Order, Internal Use Only DO Not Attach Compendium DO Not Attach Compendium, Do Not Delete/merge, [id number] 1 13:29:34 electr rosalba albarado 2022 023 [email or web address] In-Office Order, Internal Use Only DO Not Attach Compendium DO Not Attach Compendium, Do Not Delete/merge, [id number] 3 14:23:52 Medication Orders almotr iptan malate 12.5 mg tablet 2019 020 [email or web address] [facility] #17872, [address], [place], [id number], 3 13:47:04 omepra zole 40 mg capsul e,eleanor yed releas e 2019 020 [email or web address] [facility] #08773, [address], [place], [id number], 0 09:15:45 Procto melodie HC 2.5 % topica l cream perine al applic ator 2019 020 INTERFACE [facility] #27154, [address], [place], [id number], 0 09:56:13 omepra zole 20 mg capsul e,eleanor yed releas e 2022 023 ANDREE [facility] #65883, [address], [place], [id number], 3 14:09:05 Patient TargetsNo targets recorded. Patient Instructions Encounter Date Encounter Id Patient Instructions Last Modified By Organization Details Last Modified Time 03/03/2020 [id number] hemorrhoids: car e instructions Not available 03/03/2020 10:10:10 high-fiber diet: care instructions Not available 03/03/2020 10:10:10 high cholesterol : care instructions Not available 03/03/2020 09:46:45 heart-healthy diet: care instructions Not available 03/03/2020 09:46:45 diet and exercis e for metabolic syndrome: care instructions Not available 03/03/2020 09:46:44 starting a weigh t loss plan: care instructions Not available 03/03/2020 09:56:50 Nutrition Referral and Weight Management Follow-up Information Not available 03/03/2020 09:56:50 Reason for Referral Offal Icer Poultry/dietitian Refer ral for Body mass index 30+ - obesity Referring Physician: Louann Pruitt, Internal Medicine, Encounter Date: 03/03/2020 Loader Operator Referral fo r Neck pain Sensation of discomfort in the anterior neck/trachea on swallowing saliva. Referring Physician: Louann Pruitt, Internal Medicine, Encounter Date: 06/03/2022 Results Created Date Observation Date Name Description Value Unit Range Abnormal Flag Note LastModifiedBy Organization Detail LastModifiedTime 09/17/1909/17/2019 CBC w/ auto diff WBC 7.2 K/mm3 (4.0-1 1.0) Not Available [facility] [address] [place], [address], 09/17/2019 10:23:51 09/17/1909/17/2019 CBC w/ auto diff RBC 4.82 M/mm3 (4.70- 6.10) Not Available [facility] [address] [place], [address], 09/17/2019 10:23:51 09/17/1909/17/2019 CBC w/ auto diff HGB 14.0 gm/dL (13.7- 17.1) Not Available [facility] [address] [place], [address], 09/17/2019 10:23:51 09/17/1909/17/2019 CBC w/ auto diff HCT 43.5 % (40.5- 50.0) Not Available [facility] [address] [place], [address], 09/17/2019 10:23:51 09/17/1909/17/2019 CBC w/ auto diff MCV 90.2 fL (80.0- 94.0) Not Available [facility] [address] [place], [address], 09/17/2019 10:23:51 09/17/19 20 09/17/2019 CBC w/ auto diff MCH 29.0 pg (27.0- 34.0) Not Available [facility] [address] [place], [address], 09/17/2019 10:23:51 09/17/19 20 09/17/2019 CBC w/ auto diff MCHC 32.2 g/dL (33.0- 37.0) low Not Available [facility] [address] [place], [address], 09/17/2019 10:23:51 09/17/19 20 09/17/2019 CBC w/ auto diff plt 192 K/mm3 (150-4 60) Not Available [facility] [address] [place], [address], 09/17/2019 10:23:51 09/17/19 20 09/17/2019 CBC w/ auto diff RDW-SD 41.3 fL (<47.0 ) Not Available [facility] [address] [place], [address], 09/17/2019 10:23:51 09/17/1909/17/2019 CBC w/ auto diff MPV 12.3 fL (9.4-1 2.4) Not Available [facility] [address] [place], [address], 09/17/2019 10:23:51 09/17/1909/17/2019 CBC w/ auto diff automated NRBC 0.0 #/100 _WBC' s Not Available [facility] [address] [place], [address], 09/17/2019 10:23:51 09/17/1909/17/2019 CBC w/ auto diff abs. NRBC 0.0 K/mm3 Not Available [facility] [address] [place], [address], 09/17/2019 10:23:51 09/17/1909/17/2019 CBC w/ auto diff neut # 4.2 K/mm3 (1.3-7 .0) Not Available [facility] [address] [place], [address], 09/17/2019 10:23:51 09/17/19 20 09/17/2019 CBC w/ auto diff lymph # 1.5 K/mm3 (0.8-3 .1) Not Available [facility] [address] [place], [address], 09/17/2019 10:23:51 09/17/19 20 09/17/2019 CBC w/ auto diff mono# 0.7 K/mm3 (0.4-1 .3) Not Available [facility] [address] [place], [address], 09/17/2019 10:23:51 09/17/19 20 09/17/2019 CBC w/ auto diff eo # 0.8 K/mm3 (0.0-0 .4) high Not Available [facility] [address] [place], [address], 09/17/2019 10:23:51 09/17/19 20 09/17/2019 CBC w/ auto diff baso # 0.0 K/mm3 (0.0-0 .1) Not Available [facility] [address] [place], [address], 09/17/2019 10:23:51 09/17/19 20 09/17/2019 CBC w/ auto diff abs. imm gran 0.0 K/mm3 Not Available [facility] [address] [place], [address], 09/17/2019 10:23:51 09/17/19 20 09/17/2019 CBC w/ auto diff neut 57.4 % (44-76 ) Not Available [facility] [address] [place], [address], 09/17/2019 10:23:51 09/17/19 20 09/17/2019 CBC w/ auto diff lymph 20.8 % (15-43 ) Not Available [facility] [address] [place], [address], 09/17/2019 10:23:51 09/17/19 20 09/17/2019 CBC w/ auto diff monocyte 9.7 % (4.5-1 0.5) Not Available [facility] [address] [place], [address], 09/17/2019 10:23:51 09/17/19 20 09/17/2019 CBC w/ auto diff eo 11.1 % (0-6) high Not Available [facility] [address] [place], [address], 09/17/2019 10:23:51 09/17/19 20 09/17/2019 CBC w/ auto diff baso 0.6 % (0-2) Not Available [facility] [address] [place], [address], 09/17/2019 10:23:51 09/17/19 20 09/17/2019 CBC w/ auto diff imm gran 0.4 % Not Available [facility] [address] [place], [address], 09/17/2019 10:23:51 09/17/19 20 09/17/2019 hepat ic funct ion panel , serum bilirubin,to julia 0.6 mg/dL (0-1.2 ) Not Available [facility] [address] [place], [address], 09/17/2019 10:51:55 09/17/19 20 09/17/2019 hepat ic funct ion panel , serum bilirubin, direct 0.1 mg/dL (0-0.3 ) Not Available [facility] [address] [place], [address], 09/17/2019 10:51:55 09/17/19 20 09/17/2019 hepat ic funct ion panel , serum indirect bilirubin 0.5 mg/dL (0.0-0 .7) Not Available [facility] [address], [address], 09/17/2019 10:51:55 09/17/19 20 09/17/2019 hepat ic funct ion panel , serum albumin 4.5 gm/dL (3.4-4 .8) Not Available [facility] [address] [place], [address], 09/17/2019 10:51:55 09/17/19 20 09/17/2019 hepat ic funct ion panel , serum AST 21 U/L (0-38) Not Available [facility] [address] [place], [address], 09/17/2019 10:51:55 09/17/19 20 09/17/2019 hepat ic funct ion panel , serum ALT 16 U/L (0-41) Not Available [facility] [address] [place], [address], 09/17/2019 10:51:55 09/17/19 20 09/17/2019 hepat ic funct ion panel , serum alk phos 64 U/L (40-12 9) Not Available [facility] [address] [place], [address], 09/17/2019 10:51:55 09/17/19 20 09/17/2019 hepat ic funct ion panel , serum total protein 6.4 gm/dL (6.2-8 .2) Not Available [facility] [address] [place], [address], 09/17/2019 10:51:55 09/17/19 20 09/17/2019 lipas e, serum or plasm a lipase 22 U/L (13-60 ) Not Available [facility] [address] [place], [address], 09/17/2019 10:51:56 09/17/19 20 09/18/2019 H pylor i igm+i gg+ig a Ab, serum H. pylori IgG (neg) normal NEGAT ROBERTO NOTE: THIS TEST SHOUL D ONLY BE PERFO RMED ON PATIE NTS WITH SYMPT OMS SUGGE STIVE OF GASTR OINTE MIA L DISEA SE. PERFO RMANC E JAE CTERI STICS CORRE LATE WITH PRETE ST PROBA BILIT Y, AND PREVA LENCE INCRE ASES WITH AGE. THIS TEST HAS NOT BEEN SPECI FICAL LY EVALU ATED IN PEDIA TRIC POPUL ATION S, A LOWER PREVA LENCE GROUP . PLEAS E INTER PRET RESUL TS TOGET HER WITH CLINI ADALBERTO AND OTHER DIAGN OSTIC FINDI NGS, AND NOTE THAT A POSIT ROBERTO RESUL T DOES NOT DISTI NGUIS H ACTIV E INFEC TION FROM COLON IZATI ON BY HEvelinPYL PARUL. Not Available [facility] [address] [place], [address], 09/18/2019 09:17:53 09/23/19 21 09/22/2020 [facility] am No observ ation record ed. In-Office Order Internal Use Only DO Not Attach Compendium DO Not Attach Compendium, Do Not Delete/merge, [id number] 09/22/2020 13:41:25 09/23/19 21 [facility] dio am No observ ation record ed. In-Office Order Internal Use Only DO Not Attach Compendium DO Not Attach Compendium, Do Not Delete/merge, [id number] 09/22/2020 10:31:10 05/03/19 23 05/03/2022 [facility] diogr am No observ ation record ed. [email or web address] In-Office Order Internal Use Only DO Not Attach Compendium DO Not Attach Compendium, Do Not Delete/merge, [id number] 05/03/2022 22:54:03 05/03/19 23 [facility] diogr am No observ ation record ed. [email or web address] In-Office Order Internal Use Only DO Not Attach Compendium DO Not Attach Compendium, Do Not Delete/merge, [id number] 05/23/2022 10:45:53 Result Notes None recorded. Problems Name Problem SNOMED Code Status Onset Date Resolution Date Notes Provider Name and Address Organization Details Recorded Time Abnormal weight loss 921946254 Completed 201111/05/2013 RECORDED 01/12/20 12 10:40AM BY VERONICA PIKE MA, ANNOTATI ON/ADDEN DUM Lucie Dela Cruz ro null, [facility] 6 10:13:52 Child attentio n deficit disorder 894783141 Completed 201308/26/2016 STORY: PA OR PIECER UP FOOTIT/ FARIDEH RAGHU GONZALEZ ; RECORDED 08/03/19 14 9:40AM BY TERRIE ALAS MA, OFFICE VISIT Removal Reason: not correct diagnosi s Mouna Ortez ivory, [facility] 7 13:57:19 Anxiety state 896616048 Active 2013 Not Available [facility] 2 02:18:57 Anxiety disorder 967012486 Completed 201111/05/2013 RECORDED 01/12/20 12 10:40AM BY VERONICA PIKE MA, ANNOTATI ON/ADDEN DUM Lucie Dela Cruz ro null, [facility] 6 10:13:52 Patient status finding [id number] Completed 201309/08/2016 RECORDED 08/03/19 14 9:41AM BY TERRIE ALAS MA, OFFICE VISIT Sharron dodson, [facility] 7 08:33:11 Chest pain 87258979 Completed 201111/05/2013 IMPRESSI ON: ATYPICAL /CHEST WALL PAIN; RECORDED 01/12/20 12 10:40AM BY VERONICA PIKE MA ANNOTATI ON/ADDBEBE Dela Cruz ro ivory, [facility] 6 10:13:52 Brittany adams [id number] Completed 201111/05/2013 RECORDED 01/12/20 12 10:40AM BY VERONICA PIKE MA ANNOTATI ON/ADDEN MARTÍNEZ Dela Cruz ro ivory, [facility] 6 10:13:52 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 Completed 201311/05/2013 IMPRESSI ON: CALL IN 3 WKS IF NOT IMPROVIN G; RECORDED 08/03/19 14 9:40AM BY TERRIE ALAS MA, ANNOTATI ON/ADDEN DUM Lucie perkins null, [facility] 6 10:13:52 Elevated blood-pr essure reading without diagnosi s of hyperten jp 737975909 Active 2013 Not Available [facility] 2 02:18:57 External hemorrho ids 72206893 Completed 201111/05/2013 RECORDED 01/12/20 12 10:40AM BY VERONICA PIKE MA, ANNOTATI ON/ADDEN DUM Amie skelton MA null, [facility] 3 16:49:34 Influenz a vaccine needed 38242502562 06 Completed 201111/05/2013 RECORDED 01/12/20 12 12:56PM BY VERONICA PIKE MA, OFFICE VISIT Lucie dodson, [facility] 6 10:13:52 Adult health examinat ion Completed 201311/05/2013 RECORDED 07/18/19 14 9:16AM BY TERRIE ALAS MA, ANNOTCORBIN ON/ADDEN DUM Lucie perkins null, [facility] 6 10:13:52 Pain in limb 54694765 Completed 201311/05/2013 RECORDED 07/18/19 14 9:16AM BY TERRIE ALAS MA, [facility] Lucie perkins null, [facility] 6 10:13:52 Essentia l hyperten jp 30807305 Completed 201011/05/2013 STORY: PT HAS ELEV BP AT TIMES, NO CONSISTE ND DX OF HTN.; RECORDED 09/01/19 11 10:35AM BY AMIE CHAVEZ MA, BERNARDATI ON/ADDEN DUM Lucie perkins null, [facility] 6 10:13:52 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 142629644 Active 2013 Not Available [facility] 2 02:18:57 Impotenc e of organic origin Active 2013 Not Available [facility] 2 02:18:57 Insomnia 516108425 Completed 201307/18/2018 Louann Pruitt PA-C [address] [facility] [address], [facility] [place], [address] , [facility] 9 10:13:35 Knee pain Completed 201111/05/2013 RECORDED 01/12/20 12 10:40AM BY VERONICA PIKE MA, ANNOTATI ON/ADDEN DUM Lucie Dela Cruz ro null, [facility] 6 10:13:52 Injury of knee 986227166 Completed 201111/05/2013 STORY: RIGHT THIGH/HE MOTOMA; RECORDED 01/12/20 12 10:39AM BY VERONICA PIKE MA, ANNOTATI ON/ADDEN DUM Lucie Okeefessand ro null, [facility] 6 10:13:52 Low back pain 736507697 Completed 201111/05/2013 RECORDED 01/12/20 12 10:40AM BY VERONICA PIKE MA, ANNOTATI ON/ADDEN DUM Lucie Dela Cruz ro null, [facility] 6 10:13:52 Malaise and fatigue 087821223 Completed 201111/05/2013 RECORDED 01/12/20 12 10:40AM BY VERONICA PIKE MA, ANNOTATI ON/ADDEN DUM Lucie Dela Cruz ro null, [facility] 6 10:13:52 Migraine 69239663 Active 2013 Not Available [facility] 2 02:18:57 Administ ration of bacteria l and viral vaccine Completed 200711/05/2013 RECORDED 07/05/19 08 2:56PM BY LUCIE RAMIRZE MD, OFFICE VISIT Lucie perkins null, [facility] 6 10:13:52 Pain in eye 17510162 Completed 201111/05/2013 STORY: RIGHT EYE PAIN S/P INJURY 1-2 WEEKS AGO; IMPRESSI ON: NORMAL FLOURESC EIN EXAM, REFER TO EYE DOCTOR FOR SLIT LAMP EXAM; RECORDED 01/12/20 12 10:40AM BY VERONICA PIKE MA, [facility] Dela Cruz ro null, [facility] 6 10:13:52 Eruption [id number] Completed 201111/05/2013 RECORDED 01/12/20 12 10:40AM BY VERONICA PIKE MA, [facility] Dela Cruz ro null, [facility] 6 10:13:52 Raynaud' s disease 299885776 Completed 201307/18/2018 Louann Pruitt PA-C [address], [place], [address] , [facility] 9 10:14:18 Epidermo id cyst of skin 333416746 Completed 200711/05/2013 RECORDED 01/31/20 08 11:32AM BY [facility] Dela Cruz ro null, [facility] 6 10:13:52 Seborrhe ic dermatit is 59361950 Completed 200711/05/2013 RECORDED 01/31/20 08 11:32AM BY [facility] Dela Cruz ro null, [facility] 6 10:13:52 Dyspnea 659297322 Completed 201307/18/2018 Louann Pruitt PA-C [address], [place], [address] , [facility] 9 10:14:22 Spondylo sis 9584927 Completed 201111/05/2013 RECORDED 01/12/20 12 10:40AM BY VERONICA PIKE MA, ANNOTATI ON/ADDEN DUM Lucie D'Alessand ro null, [facility] 6 10:13:52 Acquired trigger finger 1503420 Completed 201111/05/2013 RECORDED 01/12/20 12 10:40AM BY VERONICA PIKE MA, ANNOTATI ON/ADDEN DUM Lucie D'Alessand ro null, [facility] 6 10:13:52 Abnormal weight loss 408876497 Completed 201111/25/2013 RECORDED 01/12/20 12 10:40AM BY VERONICA PIKE MA, ANNOTATI ON/ADDEN DUM Lucie D'Alessand ro null, [facility] 6 10:13:52 Anxiety disorder 509589744 Completed 201111/25/2013 RECORDED 01/12/20 12 10:40AM BY VERONICA PIKE MA, ANNOTATI ON/ADDEN DUM Lucie D'Alessand ro null, [facility] 6 10:13:52 Chest pain 03916281 Completed 201111/25/2013 IMPRESSI ON: ATYPICAL /CHEST WALL PAIN; RECORDED 01/12/20 12 10:40AM BY VERONICA PIKE MA, ANNOTATI ON/ADDEN DUM Lucie D'Alessand ro null, [facility] 6 10:13:52 [place] e 261132179 Completed 201111/25/2013 RECORDED 01/12/20 12 10:40AM BY VERONICA PIKE MA, ANNOTATI ON/ADDEN DUM Lucie D'Alessand ro null, [facility] 6 10:13:52 Tietze's disease 26414372 Completed 201311/25/2013 IMPRESSI ON: CALL IN 3 WKS IF NOT IMPROVIN G; RECORDED 08/03/19 14 9:40AM BY TERRIE ALAS MA, ANNOTATI ON/ADDEN DUM Lucie D'Alessand ro null, [facility] 6 10:13:52 External hemorrho ids [id number] Completed 201111/25/2013 RECORDED 01/12/20 12 10:40AM BY VERONICA PIKE MA, ANNOTATI ON/ADDEN DUM Amie skelton MA null, [facility] 3 16:49:34 Influenz a vaccine needed 05386115653 06 Completed 201111/25/2013 RECORDED 01/12/20 12 12:56PM BY VERONICA PIKE MA, OFFICE VISIT Lucie perkins null, [facility] 6 10:13:52 Adult health examinat ion Completed 201311/25/2013 RECORDED 07/18/19 14 9:16AM BY TERRIE ALAS MA, STANTON ON/ADDEN DUM Lucie perkins null, [facility] 6 10:13:52 Pain in limb 20073923 Completed 201311/25/2013 RECORDED 07/18/19 14 9:16AM BY TERRIE ALAS MA, BERNARDATI ON/ADDEN DUM Lucie perkins null, [facility] 6 10:13:52 Essentia l hyperten jp 31535076 Completed 201011/25/2013 STORY: PT HAS ELEV BP AT TIMES, NO CONSISTE ND DX OF HTN.; RECORDED 09/01/19 11 10:35AM BY AMIE CHAVEZ MA, BERNARDATI ON/ADDEN DUM Lucie perkins null, [facility] 6 10:13:52 Knee pain Completed 201111/25/2013 RECORDED 01/12/20 12 10:40AM BY VERONICA PIKE MA, ANNOTATI ON/ADDEN DUM Lucie perkins null, [facility] 6 10:13:52 Injury of knee 920667462 Completed 201111/25/2013 STORY: RIGHT THIGH/HE MOTOMA; RECORDED 01/12/20 12 10:39AM BY VERONICA PIKE MA, STANTON ON/ADDEN DUM Lucie Dela Cruz ro null, [facility] 6 10:13:52 Low back pain 331406704 Completed 201111/25/2013 RECORDED 01/12/20 12 10:40AM BY VERONICA PIKE MA, STANTON ON/ADDEN DUM Lucie Dela Cruz ro null, [facility] 6 10:13:52 Malaise and fatigue 308393322 Completed 201111/25/2013 RECORDED 01/12/20 12 10:40AM BY VERONICA PIKE MA, STANTON ON/ADDEN DUM Lucie Dela Cruz ro null, [facility] 6 10:13:52 Administ ration of bacteria l and viral vaccine Completed 200711/25/2013 RECORDED 07/05/19 08 2:56PM BY LUCIE RAMIREZ MD, OFFICE VISIT Lucie dodson, [facility] 6 10:13:52 Pain in eye 45501832 Completed 201111/25/2013 STORY: RIGHT EYE PAIN S/P INJURY 1-2 WEEKS AGO; IMPRESSI ON: NORMAL FLOURES EIN EXAM, REFER TO EYE DOCTOR FOR SLIT LAMP EXAM; RECORDED 01/12/20 12 10:40AM BY VERONICA PIKE MA, STANTON ON/ADDEN DUM Lucie Dela Cruz ro null, [facility] 6 10:13:52 Eruption [id number] Completed 201111/25/2013 RECORDED 01/12/20 12 10:40AM BY VERONICA PIKE MA, ANNOTATI ON/ADDEN DUM Lucie Dela Cruz ro null, [facility] 6 10:13:52 Epidermo id cyst of skin 089178399 Completed 200711/25/2013 RECORDED 01/31/20 08 11:32AM BY STANTON TEJADA ON/ADDEN MARTÍNEZ Renteriaand ro null, [facility] 6 10:13:52 Seborrhe ic dermatit is 95824382 Completed 200711/25/2013 RECORDED 01/31/20 08 11:32AM BY OJ PACHECO ANNOTATI ON/[facility] MarquiseAlessand ro null, [facility] 6 10:13:52 Spondylo sis 9162395 Completed 201111/25/2013 RECORDED 01/12/20 12 10:40AM BY VERONICA PIKE MA, ANNOTATI ON/[facility] MarqiuseAlessand ro null, [facility] 6 10:13:52 Acquired trigger finger 7707035 Completed 201111/25/2013 RECORDED 01/12/20 12 10:40AM BY VERONICA PIKE MA, ANNOTATI ON/[facility] MarquiseAlessand ro null, [facility] 6 10:13:52 Hyperhid rosis 535375228 Active Not Available [facility] 2 02:18:57 Attentio n deficit hyperact ivity disorder , predomin antly inattent roberto type 27285946 Active Not Available [facility] 2 02:18:57 Hemorrho ids 84283686 Active Not Available [facility] 2 02:18:57 Fatigue 39021639 Completed 09/08/2016 Sharron dodson, [facility] 7 08:33:44 Breast lump 53702404 Completed 09/08/2016 Sharron dodson, [facility] 7 08:33:48 Hyperlip idemia 34932609 Active Not Available [facility] 2 02:18:57 Pain in left foot 33522579503 9107 Completed 09/08/2016 Sharron dodson, [facility] 7 08:33:32 Fracture of multiple ribs 0321886 Active 2016 Not Available [facility] 2 02:18:57 Fall down stairs Completed 201607/18/2018 Louann Pruitt PA-C [address], [place], [address] , [facility] 9 10:01:11 External hemorrho ids 19738520 Active 2019 JOHNN[place] Hu, [facility] 3 16:49:34 Obesity 072170057 Active 2019 Not Available [facility] 2 02:18:57 Notes:Some problems listed i n Document: #[id number] could not be added to this patient's chart. Please review this document and add these problems to the patient's chart manually as needed. Problem Notes None recorded. Procedures Surgical History Date Name Laterality Status Provider Name and Address Organization Details Recorded Time Cholecystectomy completed Chelsy chen MA [facility] 10/26/2015 09:38:30 Other completed Chelsy Anderson MA [facility] 10/26/2015 09:38:30 Imaging Results Imaging Date Name Status LastModified by Organization Details LastModified Time 09/22/2020 electrocardiogram completed In-Offi ce Order Internal Use Only DO Not Attach Compendium DO Not Attach Compendium, Do Not Delete/merge, [id number] 09/22/2020 13:41:25 09/22/2020 electrocardiogram completed In-Offi ce Order Internal Use Only DO Not Attach Compendium DO Not Attach Compendium, Do Not Delete/merge, [id number] 09/22/2020 10:31:10 05/03/2022 electrocardiogram completed [email or web address] In-Offi ce Order Internal Use Only DO Not Attach Compendium DO Not Attach Compendium, Do Not Delete/merge, [id number] 05/03/2022 22:54:03 05/03/2022 electrocardiogram completed [email or web address] In-O ffice Order Internal Use Only DO Not Attach Compendium DO Not Attach Compendium, Do Not Delete/merge, [id number] 05/23/2022 10:45:53 Procedure Notes None recorded. Medical Equipment None Reported. Allergies Allergen ID Allergen Name Allergen Category Reaction Reaction Severity Criticality Documentation Date Start Date Code Code System Note Provider Name and Address Organization Details Recorded Time 14509 Substance with sulfonami de structure and antibacte rial mechanism of action (substanc e) medicatio n Not available Not available Not available 06/25/20142013 47049 8003 SNOMED Ofelia dodson [place] - [facility] 5 16:04:25 Medications Name Sig Start Date Stop Date Status Note LastModified by Organization Details LastModified Time Prescript ion - Prior Authoriza tion Request 10/11 completed Not Available Not Available Not Available Proctosol HC 2.5 % rectal cream with applicato r 09/08 completed Not Available Not Available Not Available gabapenti n 600 mg tablet Take by oral route for 30 days. 01/03 completed Not Available Not Available Not Available venlafaxi ne 75 mg tablet DAILY 07/17 completed RECORDED 07/18/19 14 9:52AM BY TERRIE ALAS MA, OFFICE VISIT;[facility] ER/FOOTI T Not Available Not Available Not Available sildenafi l 50 mg tablet BID/PRN 10/13 completed RECORDED 10/14/19 09 10:04AM BY DWAIN CHAVEZ, OFFICE VISIT; Not Available Not Available Not Available hydrocodo ne 5 mg-acetam inophen 325 mg tablet take 1 tablet by mouth three times a day 11/15 completed Not Available Not Available Not Available almotript an malate 12.5 mg tablet TAKE 1 TABLET BY MOUTH TWICE DAILY NEEDED active Not Available Not Available No t Available clonazepa m 0.5 mg tablet Take by oral route for 30 days. active Not Available Not Available No t Available clonazepa m 1 mg tablet AT BEDTIME, NEEDED 07/18 completed Not Available Not Available Not Available Westcort 0.2 % topical ointment TWO TIMES DAILY 05/25 completed RECORDED 05/25/19 11 6:40PM BY LUCIE RAMIREZ MD, ANNOTATI ON/ADDEN DUM; Not Available Not Available Not Available methylphe nidate ER 54 mg tablet,ex tended release 24 hr Take 1 tablet every day by oral route for 30 days. active Not Available Not Available No t Available omeprazol e 40 mg capsule,d elayed release Take 1 capsule every day by oral route for 30 days. 03/03 completed Not Available Not Available Not Available oxycodone -acetamin ophen 5 mg-325 mg tablet THREE TIMES DAILY, NEEDED 09/08 completed Not Available Not Available Not Available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
== END 2024-03-28 08:12 | disposition home or self-care (01) ==
LOC: HO.US 08:11
PROVIDERS: PCP Internal Medicine; Visit Provider Internal Medicine
DX: R79.89 Other specified abnormal findings of blood chemistry (principal)
CPT/HCPCS: 76700

== ENCOUNTER 2024-05-17 14:09 | Outpatient (AMB) | payer BC, SELFPAY ==
--- OUTSIDE RECORDS SUMMARY | 2024-05-17 14:12 | XMS_ITS | Data Portability ---
Author Organization [facility] ([place], [place]), Main Office Address [address] [facility] [address] [place] [id number] Care Team Providers Care Voucher Examiner Name Role Phone LOUANN PRUITT Primary Care Provider [phone] Assessment Encounter Date Assessment Date Assessment LastModified [...] Lab CBC w/ auto diff 2019 020 [facility], [address] [facility], [facility], [place], [address], 0 10:23:51 hepati c functi on panel, serum 2019 020 [facility], [address] [facility], [facility], [place], [address], 0 10:51:55 lipase , serum or plasma 2019 020 [facility], [address], [facility], [place], [address], 0 10:51:56 H pylori igm+ig g+iga Ab, serum 2019 020 [facility], [address], [address], [place], [address], 0 09:17:53 lipid panel, serum [email or web address], [address] [place] [address], [address], 0 15:07:05 CMP, serum or plasma [address], [address] [place] [address], [address], 0 15:07:05 lipid panel, serum 2019 020 [facility], [address] [place] [address], [address], 0 11:36:53 CMP, serum or plasma 2019 020 [facility], [address] [place] [address], [address], 0 11:36:53 Referral nutrit ionist /dieti shine referr al 2019 020 [email or web address] Not available 0 10:04:19 otolar yngolo gist referr al - Sensat ion of discom fort in the anteri or neck/t rachea on swallo wing saliva . 2022 023 [email or web address] [facility] , [address], [address], [place], [address], 3 10:38:13 Procedures None record ed. Surgeries None record ed. Imaging electr rosalba albarado 2020 021 In-Office Order, Internal Use Only DO Not Attach Compendium DO Not Attach Compendium, Do Not Delete/merge, [id number] 1 13:29:34 electr rosalba albarado 2022 023 [email or web address] In-Office Order, Internal Use Only DO Not Attach Compendium DO Not Attach Compendium, Do Not Delete/merge, [id number] 3 14:23:52 Medication Orders almotr iptan malate 12.5 mg tablet 2019 020 [email or web address] [facility] #64015, [address], [place], [id number], 3 13:47:04 omepra zole 40 mg capsul e,eleanor yed releas e 2019 020 [facility] #57875, [address], [place], [id number], 0 09:15:45 Procto melodie HC 2.5 % topica l cream perine al applic ator 2019 020 INTERFACE [facility] #84750, [address], [place], [id number], 0 09:56:13 omepra zole 20 mg capsul e,eleanor yed releas e 2022 023 ANDREE [facility] #22259, [address], [place], [id number], 3 14:09:05 Patient TargetsNo targets recorded. 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 Referring Physician: Louann Pruitt, Internal Medicine, Encounter Date: 06/03/2022 Results Created Date Observation Date Name Description Value Unit Range Abnormal Flag Note LastModifiedBy Organization Detail LastModifiedTime 09/17/1909/17/2019 CBC w/ auto diff WBC 7.2 K/mm3 (4.0-1 1.0) Not Available [facility] [address] [place], [address], 09/17/2019 10:23:51 09/17/1909/17/2019 CBC w/ auto diff RBC 4.82 M/mm3 (4.70- 6.10) Not Available [facility] [address] [place], [address], 09/17/2019 10:23:51 09/17/1909/17/2019 CBC w/ auto diff HGB 14.0 gm/dL (13.7- 17.1) Not Available [facility] [address] [place], [address], 09/17/2019 10:23:51 09/17/1909/17/2019 CBC w/ auto diff HCT 43.5 % (40.5- 50.0) Not Available [facility] [address] [place], [address], 09/17/2019 10:23:51 09/17/1909/17/2019 CBC w/ auto diff MCV 90.2 fL (80.0- 94.0) Not Available [facility] [address] [place], [address], 09/17/2019 10:23:51 09/17/19 20 09/17/2019 CBC w/ auto diff MCH 29.0 pg (27.0- 34.0) Not Available [facility] [address] [place], [address], 09/17/2019 10:23:51 09/17/19 20 09/17/2019 CBC w/ auto diff MCHC 32.2 g/dL (33.0- 37.0) low Not Available [facility] [address] [place], [address], 09/17/2019 10:23:51 09/17/19 20 09/17/2019 CBC w/ auto diff plt 192 K/mm3 (150-4 60) Not Available [facility] [address] [place], [address], 09/17/2019 10:23:51 09/17/19 20 09/17/2019 CBC w/ auto diff RDW-SD 41.3 fL (<47.0 ) Not Available [facility] [address] [place], [address], 09/17/2019 10:23:51 09/17/1909/17/2019 CBC w/ auto diff MPV 12.3 fL (9.4-1 2.4) Not Available [facility] [address] [place], [address], 09/17/2019 10:23:51 09/17/1909/17/2019 CBC w/ auto diff automated NRBC 0.0 #/100 _WBC' s Not Available [facility] [address] [place], [address], 09/17/2019 10:23:51 09/17/1909/17/2019 CBC w/ auto diff abs. NRBC 0.0 K/mm3 Not Available [facility] [address] [place], [address], 09/17/2019 10:23:51 09/17/1909/17/2019 CBC w/ auto diff neut # 4.2 K/mm3 (1.3-7 .0) Not Available [facility] [address] [place], [address], 09/17/2019 10:23:51 09/17/19 20 09/17/2019 CBC w/ auto diff lymph # 1.5 K/mm3 (0.8-3 .1) Not Available [facility] [address] [place], [address], 09/17/2019 10:23:51 09/17/19 20 09/17/2019 CBC w/ auto diff mono# 0.7 K/mm3 (0.4-1 .3) Not Available [facility] [address] [place], [address], 09/17/2019 10:23:51 09/17/19 20 09/17/2019 CBC w/ auto diff eo # 0.8 K/mm3 (0.0-0 .4) high Not Available [facility] [address] [place], [address], 09/17/2019 10:23:51 09/17/19 20 09/17/2019 CBC w/ auto diff baso # 0.0 K/mm3 (0.0-0 .1) Not Available [facility] [address] [place], [address], 09/17/2019 10:23:51 09/17/19 20 09/17/2019 CBC w/ auto diff abs. imm gran 0.0 K/mm3 Not Available [facility] [address] [place], [address], 09/17/2019 10:23:51 09/17/19 20 09/17/2019 CBC w/ auto diff neut 57.4 % (44-76 ) Not Available [facility] [address] [place], [address], 09/17/2019 10:23:51 09/17/19 20 09/17/2019 CBC w/ auto diff lymph 20.8 % (15-43 ) Not Available [facility] [address] [place], [address], 09/17/2019 10:23:51 09/17/19 20 09/17/2019 CBC w/ auto diff monocyte 9.7 % (4.5-1 0.5) Not Available [facility] [address] [place], [address], 09/17/2019 10:23:51 09/17/19 20 09/17/2019 CBC w/ auto diff eo 11.1 % (0-6) high Not Available [facility] [address] [place], [address], 09/17/2019 10:23:51 09/17/19 20 09/17/2019 CBC w/ auto diff baso 0.6 % (0-2) Not Available [facility] [address] [place], [address], 09/17/2019 10:23:51 09/17/19 20 09/17/2019 CBC w/ auto diff imm gran 0.4 % Not Available [facility] [address] [place], [address], 09/17/2019 10:23:51 09/17/19 20 09/17/2019 hepat ic funct ion panel , serum bilirubin,to julia 0.6 mg/dL (0-1.2 ) Not Available [facility] [address] [place], [address], 09/17/2019 10:51:55 09/17/19 20 09/17/2019 hepat ic funct ion panel , serum bilirubin, direct 0.1 mg/dL (0-0.3 ) Not Available [facility] [address] [place], [address], 09/17/2019 10:51:55 09/17/19 20 09/17/2019 hepat ic funct ion panel , serum indirect bilirubin 0.5 mg/dL (0.0-0 .7) Not Available [facility] [address], [address], 09/17/2019 10:51:55 09/17/19 20 09/17/2019 hepat ic funct ion panel , serum albumin 4.5 gm/dL (3.4-4 .8) Not Available [facility] [address] [place], [address], 09/17/2019 10:51:55 09/17/19 20 09/17/2019 hepat ic funct ion panel , serum AST 21 U/L (0-38) Not Available [facility] [address] [place], [address], 09/17/2019 10:51:55 09/17/19 20 09/17/2019 hepat ic funct ion panel , serum ALT 16 U/L (0-41) Not Available [facility] [address] [place], [address], 09/17/2019 10:51:55 09/17/19 20 09/17/2019 hepat ic funct ion panel , serum alk phos 64 U/L (40-12 9) Not Available [facility] [address] [place], [address], 09/17/2019 10:51:55 09/17/19 20 09/17/2019 hepat ic funct ion panel , serum total protein 6.4 gm/dL (6.2-8 .2) Not Available [facility] [address] [place], [address], 09/17/2019 10:51:55 09/17/19 20 09/17/2019 lipas e, serum or plasm a lipase 22 U/L (13-60 ) Not Available [facility] [address] [place], [address], 09/17/2019 10:51:56 09/17/19 20 09/18/2019 H pylor [...] Available [facility] [address] [place], [address], 09/18/2019 09:17:53 09/23/19 21 09/22/2020 [facility] am No observ ation record ed. In-Office Order Internal Use Only DO Not Attach Compendium DO Not Attach Compendium, Do Not Delete/merge, [id number] 09/22/2020 13:41:25 09/23/19 21 [facility] am No observ ation record ed. In-Office Order Internal Use Only DO Not Attach Compendium DO Not Attach Compendium, Do Not Delete/merge, [id number] 09/22/2020 10:31:10 05/03/19 23 05/03/2022 [facility] diogr am No observ ation record ed. [email or web address] In-Office Order Internal Use Only DO Not Attach Compendium DO Not Attach Compendium, Do Not Delete/merge, [id number] 05/03/2022 22:54:03 05/03/19 23 [facility] di[facility] am No observ ation record ed. [email or web address] In-Office Order Internal Use Only DO Not Attach Compendium DO Not Attach Compendium, Do Not Delete/merge, [id number] 05/23/2022 10:45:53 Result Notes None recorded. Problems Name Problem SNOMED Code Status Onset Date Resolution Date Notes Provider Name and Address Organization Details Recorded Time Abnormal weight loss 415549307 Completed 201111/05/2013 RECORDED 01/12/20 12 10:40AM BY VERONICA PIKE MA, ANNOTATI ON/ADDEN DUM Lucie Dela Cruz ro null, 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 ([place], [place]) 7 13:57:19 Anxiety state 691888279 Active 2013 Not Available [facility] 2 02:18:57 Anxiety disorder 799129886 Completed 201111/05/2013 RECORDED 01/12/20 12 10:40AM BY VERONICA PIKE MA, ANNOTATI ON/ADDEN DUM Lucie Dela Cruz ro null, [facility] ([place], [place]) 6 10:13:52 Patient status finding 051028794 Completed 201309/08/2016 RECORDED 08/03/19 14 9:41AM BY TERRIE ALAS MA, OFFICE VISIT Sharron dodson, [facility] ([place], [place]) 7 08:33:11 Chest pain 00789830 Completed 201111/05/2013 IMPRESSI ON: ATYPICAL /CHEST WALL PAIN; RECORDED 01/12/20 12 10:40AM BY VERONICA PIKE MA ANNOTATI ON/ADDBEBE Dela Cruz ro ivory, [facility] ([place], [place]) 6 10:13:52 Brittany adams [id number] Completed 201111/05/2013 RECORDED 01/12/20 12 10:40AM BY VERONICA PIKE MA ANNOTATI ON/ADDEN MARTÍNEZ Dela Cruz ro ivory, 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 ([place], [place]) 6 10:13:52 Elevated blood-pr essure reading without diagnosi s of hyperten jp 884408210 Active 2013 Not Available [facility] 2 02:18:57 External hemorrho ids 80350202 Completed 201111/05/2013 RECORDED 01/12/20 12 10:40AM BY VERONICA PIKE MA, ANNOTATI ON/ADDEN DUM Amie skelton MA null, [facility] ([place], [place]) 3 16:49:34 Influenz a vaccine needed 05429420668 06 Completed 201111/05/2013 RECORDED 01/12/20 12 12:56PM BY VERONICA PIKE MA, OFFICE VISIT Lucie dodson, [facility] ([place], [place]) 6 10:13:52 Adult health examinat ion Completed 201311/05/2013 RECORDED 07/18/19 14 9:16AM BY TERRIE ALAS MA, ANNOTCORBIN ON/ADDEN DUM Lucie perkins null, [facility] ([place] [place]) 6 10:13:52 Pain in limb 67358499 Completed 201311/05/2013 RECORDED 07/18/19 14 9:16AM BY TERRIE ALAS MA, [facility] Lucie perkins null, [facility] ([place], [place]) 6 10:13:52 Essentia l hyperten jp 89109046 Completed 201011/05/2013 STORY: PT HAS ELEV BP AT TIMES, NO CONSISTE ND DX OF HTN.; RECORDED 09/01/19 11 10:35AM BY AMIE CHAVEZ MA, BERNARDATI ON/ADDEN DUM Lucie perkins null, 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 ([place], [place]) 6 10:13:52 Injury of knee 083879167 Completed 201111/05/2013 STORY: RIGHT THIGH/HE MOTOMA; RECORDED 01/12/20 12 10:39AM BY VERONICA PIKE MA, ANNOTATI ON/ADDEN DUM Lucie Okeefessand ro null, [facility] ([place], [place]) 6 10:13:52 Low back pain 097478793 Completed 201111/05/2013 RECORDED 01/12/20 12 10:40AM BY VERONICA PIKE MA, ANNOTATI ON/ADDEN DUM Lucie Dela Cruz ro null, [facility] ([place] [place]) 6 10:13:52 Malaise and fatigue 495653981 Completed 201111/05/2013 RECORDED 01/12/20 12 10:40AM BY VERONICA PIKE MA, ANNOTATI ON/ADDEN DUM Lucie Dela Cruz ro null, [facility] ([place], [place]) 6 10:13:52 Migraine 73758358 Active 2013 Not Available [facility] 2 02:18:57 Administ ration of bacteria l and viral vaccine Completed 200711/05/2013 RECORDED 07/05/19 08 2:56PM BY LUCIE RAMIREZ MD, OFFICE VISIT Lucie perkins null, [facility] ([place], [place]) 6 10:13:52 Pain in eye 90178963 Completed 201111/05/2013 STORY: RIGHT EYE PAIN S/P INJURY 1-2 WEEKS AGO; IMPRESSI ON: NORMAL FLOURESC EIN EXAM, REFER TO EYE DOCTOR FOR SLIT LAMP EXAM; RECORDED 01/12/20 12 10:40AM BY VERONICA PIKE MA, [facility] Dela Cruz ro null, [facility] ([place] [place]) 6 10:13:52 Eruption 953047841 Completed 201111/05/2013 RECORDED 01/12/20 12 10:40AM BY VERONICA PIKE MA, [facility] Dela Cruz ro null, [facility] ([place] [place]) 6 10:13:52 Raynaud' s disease 068895462 Completed 201307/18/2018 Louann Pruitt PA-C [address], [place], [address] , [facility] 9 10:14:18 Epidermo id cyst of skin 980980751 Completed 200711/05/2013 RECORDED 01/31/20 08 11:32AM BY [facility] Dela Cruz ro null, [facility] ([place] [place]) 6 10:13:52 Seborrhe ic dermatit is 54353203 Completed 200711/05/2013 RECORDED 01/31/20 08 11:32AM BY [facility] Dela Cruz ro null, [facility] [place]) 6 10:13:52 Dyspnea 093822470 Completed 201307/18/2018 Louann Pruitt PA-C [address], [place], [address] , [facility] 9 10:14:22 Spondylo sis 8197139 Completed 201111/05/2013 RECORDED 01/12/20 12 10:40AM BY VERONICA PIKE MA, ANNOTATI ON/ADDEN DUM Lucie D'Alessand ro null, [facility], [place]) 6 10:13:52 Acquired trigger finger 1561132 Completed 201111/05/2013 RECORDED 01/12/20 12 10:40AM BY VERONICA PIKE MA, ANNOTATI ON/ADDEN DUM Lucie D'Alessand ro null, [facility] ([place], [place]) 6 10:13:52 Abnormal weight loss 010590225 Completed 201111/25/2013 RECORDED 01/12/20 12 10:40AM BY VERONICA PIKE MA, ANNOTATI ON/ADDEN DUM Lucie D'Alessand ro null, [facility] [place]) 6 10:13:52 Anxiety disorder 941370898 Completed 201111/25/2013 RECORDED 01/12/20 12 10:40AM BY VERONICA PIKE MA, ANNOTATI ON/ADDEN DUM Lucie D'Alessand ro null, [facility] [place]) 6 10:13:52 Chest pain 54963044 Completed 201111/25/2013 IMPRESSI ON: ATYPICAL /CHEST WALL PAIN; RECORDED 01/12/20 12 10:40AM BY VERONICA PIKE MA, ANNOTATI ON/ADDEN DUM Lucie D'Alessand ro null, [facility] [place]) 6 10:13:52 [place] e 272262268 Completed 201111/25/2013 RECORDED 01/12/20 12 10:40AM BY VERONICA PIKE MA, ANNOTATI ON/ADDEN DUM Lucie D'Alessand ro null, [facility] [place]) 6 10:13:52 Tietze's disease 19021816 Completed 201311/25/2013 IMPRESSI ON: CALL IN 3 WKS IF NOT IMPROVIN G; RECORDED 08/03/19 14 9:40AM BY TERRIE ALAS MA, ANNOTATI ON/ADDEN DUM Lucie D'Alessand ro null, [facility] [place]) 6 10:13:52 External hemorrho ids 81879779 Completed 201111/25/2013 RECORDED 01/12/20 12 10:40AM BY VERONICA PIKE MA, ANNOTATI ON/ADDEN DUM Amie skelton MA null, [facility] ([place], [place]) 3 16:49:34 Influenz a vaccine needed 75042149138 06 Completed 201111/25/2013 RECORDED 01/12/20 12 12:56PM BY VERONICA PIKE MA, OFFICE VISIT Lucie perkins null, [facility] ([place], [place]) 6 10:13:52 Adult health examinat ion Completed 201311/25/2013 RECORDED 07/18/19 14 9:16AM BY TERRIE ALAS MA, STANTON ON/ADDEN DUM Lucie perkins null, [facility] ([place], [place]) 6 10:13:52 Pain in limb 29573494 Completed 201311/25/2013 RECORDED 07/18/19 14 9:16AM BY TERRIE ALAS MA, BERNARDATI ON/ADDEN DUM Lucie perkins null, [facility] ([place] [place]) 6 10:13:52 Essentia l hyperten jp 07179121 Completed 201011/25/2013 STORY: PT HAS ELEV BP AT TIMES, NO CONSISTE ND DX OF HTN.; RECORDED 09/01/19 11 10:35AM BY AMIE CHAVEZ MA, BERNARDATI ON/ADDEN DUM Lucie perkins null, [facility] ([place] [place]) 6 10:13:52 Knee pain Completed 201111/25/2013 RECORDED 01/12/20 12 10:40AM BY VERONICA PIKE MA, ANNOTATI ON/ADDEN DUM Lucie perkins null, [facility] [place]) 6 10:13:52 Injury of knee 098486151 Completed 201111/25/2013 STORY: RIGHT THIGH/HE MOTOMA; RECORDED 01/12/20 12 10:39AM BY VERONICA PIKE MA, STANTON ON/ADDEN DUM Lucie Dela Cruz ro null, [facility] [place]) 6 10:13:52 Low back pain 632973709 Completed 201111/25/2013 RECORDED 01/12/20 12 10:40AM BY VERONICA PIKE MA, STANTON ON/ADDEN DUM Lucie Dela Cruz ro null, [facility] [place]) 6 10:13:52 Malaise and fatigue 066879384 Completed 201111/25/2013 RECORDED 01/12/20 12 10:40AM BY VERONICA PIKE MA, STANTON ON/ADDEN DUM Lucie Dela Cruz ro null, [facility] [place]) 6 10:13:52 Administ ration of bacteria l and viral vaccine Completed 200711/25/2013 RECORDED 07/05/19 08 2:56PM BY LUCIE RAMIREZ MD, OFFICE VISIT Lucie dodson, [facility] [place]) 6 10:13:52 Pain in eye 93072364 Completed 201111/25/2013 STORY: RIGHT EYE PAIN S/P INJURY 1-2 WEEKS AGO; IMPRESSI ON: NORMAL FLOURES EIN EXAM, REFER TO EYE DOCTOR FOR SLIT LAMP EXAM; RECORDED 01/12/20 12 10:40AM BY VERONICA PIKE MA, STANTON ON/ADDEN DUM Lucie Dela Cruz ro null, [facility] [place] 6 10:13:52 Eruption [id number] Completed 201111/25/2013 RECORDED 01/12/20 12 10:40AM BY VERONICA PIKE MA, ANNOTATI ON/ADDEN DUM Lucie Dela Cruz ro null, [facility] [place]) 6 10:13:52 Epidermo id cyst of skin 755788487 Completed 200711/25/2013 RECORDED 01/31/20 08 11:32AM BY STANTON TEJADA ON/ADDEN MARTÍNEZ Renteriaand ro null, [facility] [place]) 6 10:13:52 Seborrhe ic dermatit is 65645776 Completed 200711/25/2013 RECORDED 01/31/20 08 11:32AM BY OJ PACHECO ANNOTATI ON/[facility] MarquiseAlessand ro null, [facility] [place] 6 10:13:52 Spondylo sis 3356920 Completed 201111/25/2013 RECORDED 01/12/20 12 10:40AM BY VERONICA PIKE MA, ANNOTATI ON/[facility] MarquiseAlessand ro null, [facility] [place]) 6 10:13:52 Acquired trigger finger 7666620 Completed 201111/25/2013 RECORDED 01/12/20 12 10:40AM BY VERONICA PIKE MA, ANNOTATI ON/[facility] MarquiseAlessand ro null, [facility] [place] 6 10:13:52 Hyperhid rosis 128941956 Active Not Available [facility] 2 02:18:57 Attentio n deficit hyperact ivity disorder , predomin antly inattent roberto type 98218955 Active Not Available [facility] 2 02:18:57 Hemorrho ids 66381986 Active Not Available [facility] 2 02:18:57 Fatigue 11001512 Completed 09/08/2016 Sharron dodson, [facility] [place] 7 08:33:44 Breast lump 16601917 Completed 09/08/2016 Sharron dodson, [facility] [place] 7 08:33:48 Hyperlip idemia 48035618 Active Not Available [facility] 2 02:18:57 Pain in left foot 69508919763 9107 Completed 09/08/2016 Sharron dodson, [facility] [place] 7 08:33:32 Fracture of multiple ribs 5499346 Active 2016 Not Available [facility] 2 02:18:57 Fall down stairs Completed 201607/18/2018 Louann Pruitt PA-C [address], [place], [address] , [facility] 9 10:01:11 External hemorrho ids 08882850 Active 2019 JOHNNY Hu, [facility] ([place] [place]) 3 16:49:34 Obesity 677394234 Active 2019 Not Available [facility] 2 02:18:57 Notes:Some problems listed i n Document: #[id number] could not be added to this patient's chart. Please review this document and add these problems to the patient's chart manually as needed. Problem Notes None recorded. Procedures Surgical History Date Name Laterality Status Provider Name and Address Organization Details Recorded Time Cholecystectomy completed Chelsy chen MA [facility] [place]) 10/26/2015 09:38:30 Other completed Chelsy Anderson MA [facility] [place] 10/26/2015 09:38:30 Imaging Results Imaging Date Name Status LastModified by Organization Details LastModified Time 09/22/2020 electrocardiogram completed In-Offi ce Order Internal Use Only DO Not Attach Compendium DO Not Attach Compendium, Do Not Delete/merge, [id number] 09/22/2020 13:41:25 09/22/2020 electrocardiogram completed In-Offi ce Order Internal Use Only DO Not Attach Compendium DO Not Attach Compendium, Do Not Delete/merge, [id number] 09/22/2020 10:31:10 05/03/2022 electrocardiogram completed [email or web address] In-Offi ce Order Internal Use Only DO Not Attach Compendium DO Not Attach Compendium, Do Not Delete/merge, [id number] 05/03/2022 22:54:03 05/03/2022 electrocardiogram completed [email or web address] In-O ffice Order Internal Use Only DO Not Attach Compendium DO Not Attach Compendium, Do Not Delete/merge, [id number] 05/23/2022 10:45:53 Procedure Notes None recorded. Medical Equipment None Reported. Allergies Allergen ID Allergen Name Allergen Category Reaction Reaction Severity Criticality Documentation Date Start Date Code Code System Note Provider Name and Address Organization Details Recorded Time 72093 Substance with sulfonami de structure and antibacte rial mechanism of action (substanc e) medicatio n Not available Not available Not available 06/25/20142013 99451 8003 SNOMED Ofelia dodson [place] - [facility] [place] 5 16:04:25 Medications Name Sig Start [...] 14 9:52AM BY TERRIE ALAS MA, OFFICE VISIT;[facility] ER/FOOTI T Not Available Not [...] Address Organization Details Last Updated DateTime 0 15345.5 8 g 33.7 kg/m2 168.91 cm 98.06 [degF] 76 /min 98 % 98 % 118 mm[Hg] 79 mm[Hg] Roula Ham MA [facility] 0 09:20:21 Date Recorded Body height Body mass index (BMI) Body weight Oxygen saturation Oxygen saturation in Arterial blood by Pulse oximetry Heart rate Body temperature Systolic blood pressure Diastolic blood pressure Provider Name and Address Organization Details Last Updated DateTime 1 168.91 cm 33.9 kg/m2 41840.2 7 g 98 % 98 % 92 /min 98.24 [degF] 114 mm[Hg] 75 mm[Hg] Verónica Henriquez MA [facility] ([place], [place]) 1 10:06:52 Date Recorded Body height Body mass index (BMI) Body weight Heart rate Oxygen saturation Oxygen saturation in Arterial blood by Pulse oximetry Body temperature Heart rate Systolic blood pressure Diastolic blood pressure Provider Name and Address Organization Details Last Updated DateTime 3 168.91 cm 33.9 kg/m2 38871.1 7 g 120 /min 98 % 98 % 96.6 [degF] 109 /min 128 mm[Hg] 84 mm[Hg] Mary Kwan MA [facility] ([place], [place]) 3 13:48:43 Date Recorded Body height Body mass index (BMI) Body weight Heart rate Oxygen saturation Oxygen saturation in Arterial blood by Pulse oximetry Body temperature Systolic blood pressure Diastolic blood pressure Provider Name and Address Organization Details Last Updated DateTime 3 168.91 cm 33.4 kg/m2 95097.4 g 85 /min 98 % 98 % 98.2 [degF] 118 mm[Hg] 74 mm[Hg] Roula Ham MA [facility] ([place], [place]) 3 09:27:38 Social History Question Answer Notes LastModified by Organizat ion Details LastModified Time Tobacco Smoking Status Never Smoker Terrie dodson [facility] [place]) 06/17/2014 09:11:47 What Is Your Level Of [...] virus, trivalent, PF 4 completed Not Available [facility] 09/02/2021 02:18:57 Influenza, split virus, trivalent, preservative [address] [facility] ([place] [place] 05/03/2022 13:39:40 Influenza, split virus, quadrivalent, PF [address] [facility] ([place] [place] 05/03/2022 13:39:40 Influenza, split virus, trivalent, PF [address] [facility] ([place] [place] 05/03/2022 13:39:40 Influenza, split virus, trivalent, preservative [address] [facility] ([place] [place] 05/03/2022 13:39:40 Hep B, adolescent or pediatric [address] [facility] ([place] [place] 05/03/2022 13:39:40 Influenza, split virus, quadrivalent, PF [address] [facility] ([place] [place] 05/03/2022 13:39:40 Influenza, split virus, quadrivalent, PF [address] [facility] ([place] [place] 05/03/2022 13:39:40 COVID-19, mRNA, LNP-S, PF, 100 mcg/0.5mL dose or 50 mcg/0.25mL dose [address] [facility] ([place] [place] 05/03/2022 13:39:40 Hep B, adult [address] [facility] ([place] [place] 05/03/2022 13:39:41 COVID-19, mRNA, LNP-S, bivalent, PF, 50 mcg/0.5 mL or 25mcg/0.25 mL dose 2 completed Mary RacielJOHNNY Milian, [facility] ([place], [place]) 05/03/2022 13:39:41 Hep B, adolescent or pediatric 7 completed [facility]a [facility] 13:39:41 Influenza, MDCK, quadrivalent, PF 9 completed Mary Raciellicha Kwan JOHNNY dodson, [facility] ([place], [place]) 05/03/2022 13:39:41 COVID-19, mRNA, LNP-S, PF, 100 mcg/0.5mL dose or 50 mcg/0.25mL dose 1 completed Mary Raciellicha Kwan JOHNNY ivory [facility] ([place], [place]) 05/03/2022 13:39:41 COVID-19, mRNA, LNP-S, PF, 100 mcg/0.5mL dose or 50 mcg/0.25mL dose 1 completed Mary [facility]aciellicha [facility] 05/03/2022 13:39:41 Influenza, MDCK, quadrivalent, PF 2 completed Mary Raciellicha Kwan JOHNNY dodson, [facility] ([place], [place]) 05/03/2022 13:39:41 Influenza, split virus, quadrivalent, PF 8 completed Not Available [facility] 05/04/2019 02:22:16 Tdap 9 completed Not Available [facility] 05/04/2019 02:21:49 Td (adult), 2 Lf tetanus toxoid, preservative free, adsorbed 0 completed Not Available [facility] 09/02/2021 02:18:57 Tdap 8 completed Not Available [facility] 09/02/2021 02:18:57 influenza, seasonal, intradermal, preservative free 2 completed Not Available [facility] 09/02/2021 02:18:57 Past Encounters Encounter ID Performer Location Encounter Start Date Encounter Closed Date Diagnosis/Indication Diagnosis SNOMED-CT Code Diagnosis ICD10 Code Diagnosis Note [id number] [facility] [address] [place] [address] 07/25/2006 00:00:00 [id number] [facility] er[facility] [address] [place] [address] 07/05/2007 00:00:00 [id number] [employer] erce [address] [place] [address] 05/23/2006 00:00:00 [id number] [facility] er[facility] [address] [facility] [place] [address] 05/05/2006 00:00:00 [id number] auto[facility] erce [address] [facility] [place] [address] 08/28/2007 00:00:00 [id number] [facility] er[facility] [address] [facility] [place] [address] 01/31/2008 00:00:00 [id number] auto[facility] er[facility] [address] [facility] [place] [address] 04/15/2008 00:00:00 [id number] [facility] er[facility] [address] [facility] [place] [address] 10/13/2008 00:00:00 [id number] auto[facility] erce [address] [facility],[address] [place] [address] 09/09/2009 00:00:00 [id number] auto[facility] erce [address] [facility] [place] [address] 10/26/2009 00:00:00 [id number] auto[facility]Comm erce [address] [facility] [place] [address] 04/19/2010 00:00:00 [id number] auto[facility]Comm erce [address] [facility] [place] [address] 05/25/2010 00:00:00 [id number] auto[employer]Comm erce [address] [facility] [place], [place] [address] 08/31/2010 00:00:00 [id number] autoEComm rodriguee [address] [facility],[address] [place], [place] [address] 12/21/2010 00:00:00 [id number] autoEComsolo husaine [address] [facility] [place], [place] [address] 03/31/2011 00:00:00 [id number] autoEComsolo husaine [address] [facility] [place], [place] [address] 01/12/2012 00:00:00 [id number] autoEComsolo husaine [address] [facility] [place], [place] [address] 07/17/2013 00:00:00 [id number] autoEComsolo alba [address] [facility] [place] [address] 08/02/2013 00:00:00 [id number] Sharron Burks [place] Main Office [address] [address] [place] [address] 06/17/2014 08:55:31 06/17/2014 09:55:15 Adult health examination 668645496 Attention deficit hyperactivity disorder, predominantly inattentive type 24733969 mental health prescriber prescribes concerta and clonazepam Hyperhidrosis 569325819 Hemorrhoids 65946177 Fatigue 10782546 Breast lump [id number] [id number] Lucie perkins Main Office [address] [address] [place] [address] 10/26/2015 09:29:19 10/26/2015 10:11:07 Adult health examination 014969389 Z00.00 Hyperlipidemia 77414638 E78.5 Migraine 94220309 G43.90 9 Attention deficit hyperactivity disorder, predominantly inattentive type 24443758 F90.0 mental health prescriber prescribes concerta and clonazepam Pain in left foot 073507 0898 89665 M79.672 [id number] Mouna Ortez Main Office [address] [address] [place] [address] 08/26/2016 11:46:13 08/26/2016 12:36:36 Migraine 16686589 G43.909 Attention deficit hyperactivity disorder 236828498 F90.0 letter for fire dept [id number] Abhijit De La Garza MD Main Office [address] [address] [place] [address] 08/31/2016 12:56:29 08/31/2016 14:13:05 Fracture of multiple ribs 5103635 S22.41XA seen at ER, has been oow - reviewed OPERATIONS SCHEDULER - no sign of narcotic abuse - will cont oow and not cleared to [facility] - cannot lift > 15 lbs - see below for pain management strategy and oow note 25 minute office visit with greater than 50% of the visit face-to-fa ce with the patient and/or family providing counseling and/or coordinati on of care. [id number] Lucie perkins Main Office [address] [place] [address] [place] [address] 09/08/2016 10:30:59 09/08/2016 11:32:05 Fracture of multiple ribs 4176545 S22.41XD [id number] Lucie perkins Main Office [address] [place] [address] [place] [address] 10/11/2016 11:18:46 10/11/2016 12:08:24 Fracture of multiple ribs 9331070 S22.41XD [facility]/ fractures of right posterolat eral 10th and 11th ribs Fatigue 37766742 R53.83 [id number] Mouna Ortez Main Office [facility] [address] [place] [address] 10/24/2016 14:15:07 10/24/2016 15:37:22 Fracture of multiple ribs 8404625 S22.41XD [facility]/ fractures of right posterolat eral 10th and 11th ribs/ letter written for pt today/ xrays reviewed Fall down stairs 9695622 08 W10.8XXD [id number] Mouna Ortez Main Office [address] [address] [place] [address] 11/15/2016 14:32:40 11/15/2016 15:30:24 Fracture of multiple ribs 2751407 S22.41XD [facility]/ fractures of right posterolat eral 10th and 11th ribs/ letter written for pt today/ xrays reviewed Administra tion of viral vaccine 15990305 Z23 Fall down stairs 2159163 08 W10.8XXD [id number] Saima CrookMilagros doyle Main Office [address] [facility] [address] [place] [address] 01/03/2018 08:47:56 01/03/2018 09:56:44 Needs influenza immunization 529625918 Z23 Ecchymosis 781170867 R58 Bruising of right inner thigh. Possible micro-musc le tear consistent with his renewed martial arts training and stretching . Will watch and he will contact us if there is any worseing. He is advised to take Tylenol for discomfort . Strain of muscle of lower limb 385326118 S76.911A [id number] Louann Pruitt PA-C Main Office [address] [address] [place] [address] 07/18/2018 09:16:32 07/18/2018 10:18:25 Adult health examination 702645786 Z00.00 update Tdap. Administra tion of viral vaccine 98750518 Z23 Migraine 66329233 G43.90 9 Continue current meds. Hyperlipidemia 35546118 E78.00 recheck fasting labs. Body mass index 30+ - obesity 724766411 E66.9 Z68.32 Attention deficit hyperactivity disorder, predominantly inattentive type 15192540 F90.0 Continue current meds. Anxiety state 513518582 F41.1 F/u with psych Depressive disorder 3548 9007 F32.9 Insomnia 218067437 G47.0 0 Hyperhidrosis 037485306 R61 Continue prescribed meds. Elevated blood-pressure reading without diagnosis of hypertension 744694062 R03.0 monitor weekly on outside. Continue low sodium low caffeine diet. [id number] Louann Pruitt PA-C [facility] [address] [facility] [address] [place] [address] 09/13/2019 13:24:36 09/13/2019 15:57:15 Upper abdominal pain 55518327 R10.10 most likely acute gastritis , H.Pylori associated . We will do all labs to also r/o pancreas. Start PPI as discussed. Consider abd u/s and upper GI series.. Helicobact er pylori-associated gastritis 348578844 B96.81 Hyperlipidemia 09807495 E78.00 recheck fasting labs. Migraine 62132641 G43.90 9 Continue current meds. [id number] Mouna Ortez Main Office [address] [facility] [address] [place] [address] 03/03/2020 08:48:38 03/03/2020 10:04:19 Adult health examination 651977550 Z00.00 vaccines are up to date. Hyperlipidemia 25658796 E78.00 recheck fasting labs. External hemorrhoids 239 85619 K64.4 Body mass index 30+ - obesity 487399432 Z68.33 Obesity 554548025 E66.9 [id number] Louann Pruitt PA-C Main Office [address] [address] [place] [address] 09/22/2020 09:56:58 09/22/2020 10:40:32 Attention deficit hyperactivity disorder, predominantly inattentive type 77367396 F90.0 EKG today shows no QT prolongati on and is normal. Pt. will bring copy to his psychiatri and continue current meds. Anxiety state 911181392 F41.1 F/u with psych [id number] Abhijit De La Garza MD Main Office [address] [address] [place] [address] 05/03/2022 13:34:45 05/03/2022 14:23:51 Acute pharyngitis 248445249 J02.9 Based on duration of symptoms infectious etiology is unlikely. GERD seems possible. Will see if PPI trial helps. Medication monitoring 39 5236928 Z51.81 Besides mild tachycardi a, ECG was normal. Attention deficit hyperactivity disorder, predominantly inattentive type 87214307 F90.0 Managed by psychiatry . Tachycardia 2029326 R00. 0 Asymptomat ic, had coffee prior to todays visit and admits to less than ideal hydration. This combined with stimulant therapy are likely factors. Will monitor [id number] Louann Pruitt PA-C Main Office [address] [address] [place] [address] 06/03/2022 08:56:41 06/03/2022 09:49:03 Neck pain 94993918 M54.2 ? trachial irritation vs esophageal symptom. Refer to ENT for further eval. Consider after ENT eval, GI work up. Pt. will try OTC NSAIDs for 1-2 weeks. Health Concerns Section Related Observation LastModified by Organization Detai ls LastModified Time None Recorded Concern Status LastModified by Organization Details LastModified Time None Recorded Advance Directives Directive None Recorded Payers Encounter Date Sequence Insurance Name Policy Number Policy Green[place] Covered Member ID Greenfield Member ID Guarantor Name 09/13/2019 1 [facility] [id number] Priyank M M Gobeil [id number] Priyank M Gobeil 03/03/2020 1 [facility] [id number] Priyank M M Gobeil [id number] Priyank M Gobeil 09/22/2020 1 [facility] [place] [id number] Priyank M M Gobeil [id number] Priyank M Gobeil 05/03/2022 1 [facility] [place] [id number] Priyank M M Gobeil [id number] Priyank M Gobeil 06/03/2022 1 [facility] [place] [id number] Priyank M M Gobeil [id number] Priyank M Gobeil Notes Date Note Type [...] after last year's physical. Louann Pruitt PA-C [address] [address], [place], [address], [facility] [place] 09/13/2019 15:42:14 03/03/2020 text/html Generic HPI TemplateReported bypatient.Notes:45 year old male for annual PE. Pt. was diagnosed with neurological vision d/o and sees specialist in [place]. Pt. is currently in vision therapy.Pt. sees psych for ADHD and FRANKI. PHQ score is 6.Vaccines are up to date.Nonsmoker. ETOH-- not since COVID.EXercise--- minimal. Pt. gained 12 lbs since July 2018. Diet-- no restrictions.Pt. c/o recurrent external hemorrhoids. Mouna dodson, [facility] ([place], [place]) 03/08/2020 14:37:10 09/22/2020 text/html 45 year old male present for EKG to screen for QT prolongation due to taking methylphenidate and clonazepam prescribed by psychiatrist for anxiety and ADHD. PT. denies any chest symptoms and is feeling well. BP is stable. Louann Pruitt PA-C [address] [address], [place], [address], [facility] 09/22/2020 13:29:52 05/03/2022 text/html Throat PainRepor gisell bypatient.Location:lev el of pain larynx; bilateral Quality:sharp; stinging Severity:mild Duration:started 2 month(s) ago Here for routine ECG as recommended by his stimulant medication prescriber, also having sore thraot. Abhijit De La Garza MD [address] [address], [place], [address], [facility] 05/03/2022 15:51:58 06/03/2022 text/html Throat PainRepor gisell [...] anything for it. Louann Pruitt PA-C [address] [address], [place], [address], [facility] 06/03/2022 12:43:11
--- NOTE | 2024-05-17 14:14 | MHC.PC.OV ---
Vital Signs 05/17/24 14:17 Height 5 ft 6 in Weight 217 lb 6 oz BMI 35.1 BP 130/72 Blood Pressure Location Lt brachial Position Sitting Pulse 105 H Pulse Source Pulse Oximeter Temp 96.4 F L Temp Source Skin Pulse Oximetry (%) 95 Oxygen Delivery Method Room Air Intake Visit Reasons: 3M F/U/blood work review/colonoscopy Intake Note: Patient is here to follow up on ADHD, Lab results. Pt decline flu shot today. Hematology Technician Required: No Large Animal Husbandry Technician: Not Required per policy Accompanied by: Self / Same As Patient Allergies No Known Allergies [No Known Allergies*] Allergy (Verified 05/17/24 14:17) Tobacco use date assessed: 05/17/24 Dental Screening Dental Screen Date: 05/17/24 Did you have a dental visit in the last 12 months?: No Did you have a dental problem in the last 6 months where you did not have access to dental care?: No Was dental information given to patient?: Patient has dentist HPI 3M F/U/blood work review/colonoscopy HPI Details The patient is a 49-year-old male presenting for a routine follow-up and evaluation of recent laboratory results. He has been experiencing health concerns related to a recent history of influenza and subsequent bronchitis that lasted approximately one month. Currently, the patient is concerned about mildly elevated liver enzymes, previously documented during February blood work, and an increase in low-density lipoprotein (LDL) cholesterol at 135 mg/dL, slightly above the desired level of 130 mg/dL. Additional concern arises from an ultrasound indicating the presence of hepatic steatosis, commonly known as fatty liver. The patient has no immediate symptoms associated with this condition but is advised on its potential to progress without lifestyle intervention. The discussion includes dietary adjustments, exercise, and alcohol intake moderation. A significant portion of the discussion focuses on hereditary risks due to a family history of melanoma. The patient's mother had a melanoma surgically removed, and similar cases were reported in maternal grandmother and aunts. The patient seeks a dermatology referral to monitor numerous moles, particularly on the gluteal region, and to preemptively address any oncological risks. In terms of previous ADHD management, the patient acknowledges the recent correction of his previous healthcare provider and requests continuity in methylphenidate prescriptions for ongoing management of the condition. Additionally, there was reference to previous logistical issues at the pharmacy with this medication underlining the need for adherence to precise dispensing protocol. [facility] Medical History (Updated 05/17/24 @ 14:37 by Jim Prather MD) Cough Colon cancer screening ADHD Multiple rib fractures Surgical History Hx of colonoscopy [place] teeth extracted Cholelithiasis Family History (Updated 05/17/24 @ 14:39 by Jim Prather MD) Father COPD (chronic obstructive pulmonary disease) Mother Asthma Skin cancer Melanoma Maternal Grandfather Myocardial infarct Maternal Grandmother Skin cancer Breast CA Melanoma Social History Housing: House Alcohol intake: current Comment: QD alcohol 30 drinks 1.5 weeks Patient Tobacco Use Status: Never used Tobacco Tobacco use type: Cigarette e-Cigarette/Vaping Use: Never Used Second Hand Smoke Exposure: No service: No Current occupational status: employed Current occupational exposures/hazards: No Cognitive needs: No Hearing needs: No Vision needs: Yes Questionnaire PHQ-9 Over the last 2 weeks, how often have you been bothered by any of the following problems? 1. Little interest or pleasure in doing things: not at all 2. Feeling down, depressed, or hopeless: several days (currently on medication) 3. Trouble falling or staying asleep, or sleeping too much: not at all 4. Feeling tired or having little energy: not at all 5. Poor appetite or overeating: not at all 6. Feeling bad about yourself - or that you are a failure or have let yourself or your family down: not at all 7. Trouble concentrating on things, such as reading the newspaper or watching television: not at all 8. Moving or speaking so slowly that other people could have noticed. Or the opposite - being so fidgety or restless that you have been moving around a lot more than usual: not at all 9. Thoughts that you would be better off or of hurting yourself in some way: not at all Total score: 1 Depression Screening Interpretation: Negative Depression Screening Done: Yes Source: Developed by Drs. Mendoza Stewart, Blanca Smyth, Kemal Pryor and colleagues, with an educational maggie from [employer]. Thrive Questionnaire Date Thrive assessed: 05/17/24 I am a: Patient What is your living situation today?: I have a steady place to live Within the past 12 months, did the food you bought not last and you didn't have the money to get more?: Never true Within the past 12 months, did you worry whether your food would run out before you got money to buy more?: Never true Do you have trouble paying for medicines?: No Do you have trouble getting transportation to medical appointments?: No Do you have trouble paying your heating and electricity bill?: No Do you have trouble taking care of your child, family member or friend?: No Do you have trouble with day-to-day activities such as bathing, preparing meals, shopping, managing finances, etc.?: No Are you currently unemployed and looking for a job?: No Are you interested in more education?: No Please select the resources that you would like help with: None Currently or been in a relationship where the following occur: No concerns reported THRIVE Score: 0 AUDIT C Alcohol Use Questionnaire (AUDIT-C) 2. How many drinks containing alcohol do you have on a typical day when you are drinking?: 3 or 4 3. How often do you have six or more drinks on one occasion?: Monthly Total Score: 3 FRANKI-7 AMB Questionnaire FRANKI-7 Date FRANKI - 7 assessed: 05/17/24 Feeling nervous, anxious, or on edge: 1 = Several days (currently on medication) Not being able to stop or control worryin = Not at all Worrying too much about different things: 0 = Not at all Trouble relaxin = Not at all Being so restless that it is hard to sit still: 0 = Not at all Becoming easily annoyed or irritable: 0 = Not at all Feeling afraid as if something awful might happen: 0 = Not at all Total FRANKI-7 score (0-4 normal; 5-9 mild; 10-14 moderate; 15-21 severe): 1 Source: Developed by Drs. Mendoza Stewart, Blanca Smyth, Kemal Pryor and colleagues, with an educational maggie from [employer]. Physical exam (Primary Care) Vital Signs: Last Vital Signs Temp 96.4 F L 05/17/24 14:17 Pulse 105 H 05/17/24 14:17 BP 130/72 05/17/24 14:17 Pulse Ox 95 05/17/24 14:17 Oxygen Delivery Method Room Air 05/17/24 14:17 BMI result Body Mass Index 35.1 Tobacco/Smoking Status: Tobacco use Status Tobacco use date assessed 05/17/24 05/17/24 14:19 Patient Tobacco Use Status Never used Tobacco 05/17/24 14:15 Tobacco use type Cigarette 05/17/24 14:15 e-Cigarette/Vaping Use Never Used 05/17/24 14:15 PHQ-9: PHQ-9 Score PHQ-9: Total score 1 05/17/24 14:29 Depression Screening Interpretation: Negative Thrive Assessment: Date of Thrive Assessment Date Thrive assessed 05/17/24 05/17/24 14:15 Currently or been in a relationship where the following occur: No concerns reported Const General: alert; No acute distress Eyes Conjunctivae: conjunctivae normal Resp Auscultation: clear to auscultation bilaterally Cardio Rate: regular rate Rhythm: regular rhythm GI Inspection: Yes normal to inspection Extrem General: Yes normal to inspection and No edema Coding Level of Care Code Est Pt Level 4 (22587) Complex EM visit Add On G2211 Diagnoses ADHD F90.9 Hypercholesterolemia E78.00 Obesity (BMI 30-39.9) E66.9 Generalized anxiety disorder F41.1 Hepatic steatosis K76.0 Multiple pigmented nevi D22.9 Assessment & Plan Assessment & Plan (1) ADHD: Comment: Foot it Code(s): F90.9 - Attention-deficit hyperactivity disorder, unspecified type Category: Medical (2) Hypercholesterolemia: Code(s): E78.00 - Pure hypercholesterolemia, unspecified Category: Medical (3) Obesity (BMI 30-39.9): Code(s): E66.9 - Obesity, unspecified Category: Medical (4) Generalized anxiety disorder: Comment: footit Code(s): F41.1 - Generalized anxiety disorder Category: Medical (5) Hepatic steatosis: Code(s): K76.0 - Fatty (change of) liver, not elsewhere classified Category: Medical (6) Multiple pigmented nevi: Code(s): D22.9 - Melanocytic nevi, unspecified Category: Medical Plan - Continued observation of fatty liver and advice on lifestyle modification including increased physical activity and dietary adjustments to reduce intake of animal proteins and fried foods. - Monitor hyperlipidemia with lifestyle modifications; no initiation of pharmacotherapy as LDL cholesterol slightly exceeds threshold but is not urgently elevated. - Referral to a contract law specialist to evaluate skin lesions, with specific concern about familial predisposition to melanoma. - Ensure methylphenidate medication supply continuity, addressing pharmacy dispensing issues. - Advise patient regarding health maintenance strategies, including vaccination updates and monitoring of glycemic levels to preempt diabetes onset given familial history. - Reinforce proactive self-care measures including regular physical activity and a healthy diet to manage potential complications from metabolic conditions. Orders: Referrals Dermatology Referral D22.9 - Melanocytic nevi, unspecified Medications: New methylphenidate HCl ER 54 mg PO DAILY 30 tabs 0RF F90.9 - Attention-deficit hyperactivity disorder, unspecified type Changed From clonazepam 0.5 mg PO BID D22.9 - Melanocytic nevi, unspecified To clonazepam 0.5 mg PO BID PRN 30 tabs 0RF anxiety D22.9 - Melanocytic nevi, unspecified Refilled clonazepam 0.5 mg PO BID PRN 60 tabs 0RF anxiety F41.1 - Generalized anxiety disorder
[2024-05-17 14:17] VITALS: BP 130/72; PULSE 105; TEMP 35.8; O2SAT 95; BMI 35.1
== END 2024-05-17 14:48 | disposition home or self-care (01) ==
PROVIDERS: PCP Internal Medicine; Visit Provider Internal Medicine
DX: E78.00 Pure hypercholesterolemia, unspecified (principal); F90.9 Attention-deficit hyperactivity disorder, unspecified type; E66.9 Obesity, unspecified; Z68.35 Body mass index [BMI] 35.0-35.9, adult; F41.1 Generalized anxiety disorder; K76.0 Fatty (change of) liver, not elsewhere classified; D22.9 Melanocytic nevi, unspecified

== ENCOUNTER → 2024-05-17 14:09 | Outpatient (BNVA) | payer BC, SELFPAY | PROVIDERS: PCP Internal Medicine; Visit Provider Internal Medicine ==

== ENCOUNTER 2024-08-14 14:29 | Outpatient (AMB) | payer BC, SELFPAY ==
--- NOTE | 2024-08-14 14:42 | MHC.PC.OV ---
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: No Accompanied by: Self / Same As Patient Allergies No Known Allergies [No Known Allergies*] Allergy (Verified 08/14/24 14:48) Medication List - Last Reconciled 08/14/24 by Jim Prather MD almotriptan malate 12.5 mg PO .QD PRN clonazepam 0.5 mg PO BID PRN hydrocortisone 2.5% (Proctosol HC) 1 appl TX BEDTIME PRN methylphenidate HCl ER 54 mg PO DAILY trazodone 50 mg PO BEDTIME PRN Tobacco use date assessed: 05/17/24 Dental Screening Dental Screen Date: 05/17/24 [facility] Medical History (Updated 08/14/24 @ 15:53 by Jim Prather MD) Cough Colon cancer screening ADHD Multiple rib fractures Surgical History Hx of colonoscopy [place] teeth extracted Cholelithiasis Family History Father COPD (chronic obstructive pulmonary disease) Mother Asthma Skin cancer Melanoma Maternal Grandfather Myocardial infarct Maternal Grandmother Skin cancer Breast CA Melanoma Social History Housing: House Alcohol intake: current Comment: QD alcohol 30 drinks 1.5 weeks Patient Tobacco Use Status: Never used Tobacco Tobacco use type: Cigarette e-Cigarette/Vaping Use: Never Used Second Hand Smoke Exposure: No service: No Current occupational status: employed Current occupational exposures/hazards: No Cognitive needs: No Hearing needs: No Vision needs: Yes Questionnaire Thrive Questionnaire Date Thrive assessed: 05/17/24 FRANKI-7 AMB Questionnaire FRANKI-7 Date FRANKI - 7 assessed: 05/17/24 Source: Developed by Drs. Mendoza Stewart, Blanca Smyth, Kemal Pryor and colleagues, with an educational maggie from [employer]. Physical exam (Primary Care) Vital Signs: Last Vital Signs Temp 96.9 F 04/30/25 14:47 Pulse 108 H 08/14/24 14:47 BP 118/80 08/14/24 14:47 Pulse Ox 96 08/14/24 14:47 Oxygen Delivery Method Room Air 08/14/24 14:47 BMI result Body Mass Index 35.4 Tobacco/Smoking Status: Tobacco use Status Tobacco use date assessed 05/17/24 08/14/24 14:42 Patient Tobacco Use Status Never used Tobacco 08/14/24 14:42 Tobacco use type Cigarette 08/14/24 14:42 e-Cigarette/Vaping Use Never Used 08/14/24 14:42 Thrive Assessment: Date of Thrive Assessment Date Thrive assessed 05/17/24 08/14/24 14:42 Const General: alert; No acute distress Eyes Conjunctivae: conjunctivae normal Resp Auscultation: clear to auscultation bilaterally Cardio Rate: regular rate Rhythm: regular rhythm GI Inspection: Yes normal to inspection Extrem General: Yes normal to inspection and No edema Coding Level of Care Code Est Pt Level 4 (64371) Complex EM visit Add On G2211 Diagnoses Obesity (BMI 30-39.9) E66.9 ADHD F90.9 Hypercholesterolemia E78.00 Generalized anxiety disorder F41.1 Hepatic steatosis K76.0 Bilateral shoulder pain M25.511; M25.512 Assessment & Plan Assessment & Plan (1) Obesity (BMI 30-39.9): Code(s): E66.9 - Obesity, unspecified Category: Medical Plan: Diet and exercise (2) ADHD: Comment: Foot it Code(s): F90.9 - Attention-deficit hyperactivity disorder, unspecified type Category: Medical Plan: Continue with counseling and therapy (3) Hypercholesterolemia: Code(s): E78.00 - Pure hypercholesterolemia, unspecified Category: Medical Plan: Avoid fried foods, chicken skin, eggs, butter margarine, pastries and meat. Be it pork or beef they have a lot of cholesterol LDL goal of less than 130 and triglyceride of less than 150 (4) Generalized anxiety disorder: Comment: footit Code(s): F41.1 - Generalized anxiety disorder Category: Medical Plan: Continue with present medication and therapy and counseling (5) Hepatic steatosis: Code(s): K76.0 - Fatty (change of) liver, not elsewhere classified Category: Medical Plan: Low-fat diet and exercise (6) Bilateral shoulder pain: Code(s): M25.511 - Pain in right shoulder; M25.512 - Pain in left shoulder Category: Medical Plan: Left shoulder examined Discussed that this is bicipital tendonitis and that heating pads as well as exercises will help and sure enough that the patient states that it is getting better and will call if pain persists or increasing. Plan History of Present Illness The patient is a 49-year-old male presenting for follow-up of chronic medical conditions and medication management. The patient has a history of generalized anxiety disorder, ADHD, hypercholesterolemia, and hepatic steatosis. The hepatic steatosis has been linked with elevated cholesterol levels, with the last recorded level being 135 mg/dL. He last underwent blood tests in February 2024, which revealed normal results apart from elevated liver function enzymes at 49 IU/L. The patient describes significant difficulties managing his alcohol consumption primarily in response to stress and work-related issues. His current routine consumption is about four drinks per day, with an aim to further minimize intake. He has expressed frustrations with pharmacy-related delays impacting the continuity of methylphenidate for ADHD management, also contributing to stress. Recently, he reports an episode of bicipital tendinitis in his right shoulder due to inappropriate sleeping posture, a problem persisting for over a month but showing slow improvement with physical therapy. Health Maintenance - Counseling on diet and exercise adherence to support weight management. - Monitoring of liver function tests due to elevated previous results. - Observation of cholesterol levels with a target LDL level of below 130 mg/dL and triglycerides less than 150 mg/dL. - Encouragement of alcohol reduction strategies and support for anxiety management. - Continued therapy and counseling sessions for anxiety and ADHD management. Social History - Employment stress: Issues with superiors at work affecting anxiety levels and contributing to stress-related alcohol consumption. - Alcohol use: History of binge drinking now reduced to approximately four drinks per day with attempts at periodic abstinence. - Physical activity: Engages in self-directed physical therapy exercises for shoulder rehabilitation. - Weight management: Attributes weight gain partly to changes in alcohol consumption. Review of Systems - Neurological: Denies changes in migraine frequency. - Musculoskeletal: Reports right shoulder pain aggravated by certain movements. - Psychiatric: Reports anxiety related to work stress; denies depression. - Gastrointestinal: Denies new symptoms, indicates ongoing monitoring for hepatic steatosis. Physical Exam - Musculoskeletal- Pain noted on specific movements; range of motion exercises implicates bicipital tendinitis in the right shoulder. Results - Labs: Last blood tests in February 2024 showed liver enzyme elevation at 49 IU/L, normal blood count, and electrolytes. Plan The management plan includes ongoing monitoring of liver enzymes and lipid levels, emphasizing dietary and lifestyle changes for managing hepatic steatosis. ADHD management will continue with current medications while addressing pharmacy supply challenges. A focus on reducing alcohol intake, supported with thiamine supplementation and counseling, aims to decrease hepatic strain. Shoulder rehabilitation continues with conservative measures while observing for potential escalation in treatment. Patient was informed and verbally consented to the use of an ambient scribe for clinic note documentation during this visit. Discussion Notes Options and expectations for the management of hepatic steatosis and hypercholesterolemia were discussed, focusing on diet and lifestyle changes. The importance of consistent medication adherence despite pharmacy issues was emphasized for ADHD and anxiety management. Detailed risks and benefits of Thiamine supplementation were explained, highlighting its use in alcohol effect mitigation. We reviewed conservative treatment strategies for bicipital tendinitis and outlined follow-up plans for reassessment. Patient Instructions - Continue current medications for ADHD and anxiety. - Maintain a low-fat diet and regular exercise routine. - Monitor alcohol consumption; aim to reduce intake, and avoid binge drinking. - Use thiamine as prescribed to support liver health. - Continue physical therapy exercises for shoulder pain. - Follow up for lab work to monitor liver function and cholesterol levels. - Report any worsening of symptoms or new concerns. Medications: New thiamine HCl (vitamin B1) 50 mg PO DAILY 30 tabs 6RF F10.10 - Alcohol abuse, uncomplicated
[2024-08-14 14:47] VITALS: BP 118/80; PULSE 108; TEMP 36.1; O2SAT 96; BMI 35.4
== END 2024-08-14 16:38 | disposition home or self-care (01) ==
LOC: HO.HMCH 14:30
PROVIDERS: PCP Internal Medicine; Visit Provider Internal Medicine
DX: E78.00 Pure hypercholesterolemia, unspecified (principal); F90.9 Attention-deficit hyperactivity disorder, unspecified type; E66.9 Obesity, unspecified; Z68.35 Body mass index [BMI] 35.0-35.9, adult; F41.1 Generalized anxiety disorder; K76.0 Fatty (change of) liver, not elsewhere classified; M25.511 Pain in right shoulder; M25.512 Pain in left shoulder

== ENCOUNTER → 2024-08-14 14:29 | Outpatient (BNVA) | payer BC, SELFPAY | PROVIDERS: PCP Internal Medicine; Visit Provider Internal Medicine ==

== ENCOUNTER 2025-02-13 11:45 | Outpatient (AMB) | payer BC, SELFPAY ==
[2025-02-13 11:46] VITALS: BP 126/68; PULSE 127; TEMP 36.1; O2SAT 97; BMI 35.2
--- NOTE | 2025-02-13 11:46 | A.OFFPC_ITS ---
Vital Signs 02/13/25 11:46 Height 5 ft 6 in Weight 218 lb BMI 35.2 BP 126/68 Blood Pressure Location Lt brachial Position Sitting Pulse 127 H Pulse Source Pulse Oximeter Temp 97.0 F Temp Source Temporal Artery Scan Pulse Oximetry (%) 97 Oxygen Delivery Method Room Air Intake Visit Reasons: 3M Follow Up Allergies No Known Allergies (No Known Allergies*) Allergy (Verified 02/13/25 11:48) Medication List - Last Reconciled 02/13/25 by Jim Prather MD almotriptan malate 12.5 mg PO .QD PRN clonazepam 0.5 mg PO BID PRN hydrocortisone 2.5% (Proctosol HC) 1 appl CO BEDTIME PRN thiamine HCl (vitamin B1) 50 mg PO DAILY trazodone 50 mg PO BEDTIME PRN Tobacco use date assessed: 02/13/25 Dental Screening Dental Screen Date: 02/13/25 Did you have a dental visit in the last 12 months?: No Did you have a dental problem in the last 6 months where you did not have access to dental care?: No Was dental information given to patient?: Patient has dentist [facility] Medical History Cough Colon cancer screening ADHD Multiple rib fractures Surgical History Hx of colonoscopy [place] teeth extracted Cholelithiasis Family History Father COPD (chronic obstructive pulmonary disease) Mother Asthma Skin cancer Melanoma Maternal Grandfather Myocardial infarct Maternal Grandmother Skin cancer Breast CA Melanoma Social History Housing: House Alcohol intake: current Comment: QD alcohol 30 drinks 1.5 weeks Patient Tobacco Use Status: Never used Tobacco Tobacco use type: Cigarette e-Cigarette/Vaping Use: Never Used Second Hand Smoke Exposure: No service: No Current occupational status: employed Current occupational exposures/hazards: No Cognitive needs: No Hearing needs: No Vision needs: Yes Questionnaire PHQ-9 Over the last 2 weeks, how often have you been bothered by any of the following problems? 1. Little interest or pleasure in doing things: not at all 2. Feeling down, depressed, or hopeless: several days (currently on medication) 3. Trouble falling or staying asleep, or sleeping too much: not at all 4. Feeling tired or having little energy: not at all 5. Poor appetite or overeating: not at all 6. Feeling bad about yourself - or that you are a failure or have let yourself or your family down: not at all 7. Trouble concentrating on things, such as reading the newspaper or watching television: not at all 8. Moving or speaking so slowly that other people could have noticed. Or the opposite - being so fidgety or restless that you have been moving around a lot more than usual: not at all 9. Thoughts that you would be better off or of hurting yourself in some way: not at all Total score: 1 Depression Screening Interpretation: Negative Depression Screening Done: Yes Source: Developed by Drs. Mendoza Stewart, Blanca Smyth, Kemal Pryor and colleagues, with an educational maggie from [employer]. Thrive Questionnaire Date Thrive assessed: 11/15/24 I am a: Patient What is your living situation today?: I have a steady place to live Within the past 12 months, did the food you bought not last and you didn't have the money to get more?: I choose not to answer this question Within the past 12 months, did you worry whether your food would run out before you got money to buy more?: I choose not to answer this question Do you have trouble paying for medicines?: I choose not to answer this question Do you have trouble getting transportation to medical appointments?: I choose not to answer this question Do you have trouble paying your heating and electricity bill?: I choose not to answer this question Do you have trouble taking care of your child, family member or friend?: I choose not to answer this question Do you have trouble with day-to-day activities such as bathing, preparing meals, shopping, managing finances, etc.?: I choose not to answer this question Are you currently unemployed and looking for a job?: I choose not to answer this question Are you interested in more education?: I choose not to answer this question THRIVE Score: 0 AUDIT C Alcohol Use Questionnaire (AUDIT-C) 1. How often do you have a drink containing alcohol?: 2-3 times a week 2. How many drinks containing alcohol do you have on a typical day when you are drinking?: 3 or 4 3. How often do you have six or more drinks on one occasion?: Less than monthly Total Score: 5 FRANKI-7 AMB Questionnaire FRANKI-7 Date FRANKI - 7 assessed: 05/17/24 Feeling nervous, anxious, or on edge: 1 = Several days (currently on medication) Not being able to stop or control worryin = Not at all Worrying too much about different things: 0 = Not at all Trouble relaxin = Not at all Being so restless that it is hard to sit still: 0 = Not at all Becoming easily annoyed or irritable: 0 = Not at all Feeling afraid as if something awful might happen: 0 = Not at all Total FRANKI-7 score (0-4 normal; 5-9 mild; 10-14 moderate; 15-21 severe): 1 Source: Developed by Drs. Mendoza Stewart, Blanca Smyth, Kemal Pryor and colleagues, with an educational maggie from [employer]. Physical exam (Primary Care) Vital Signs: Last Vital Signs Temp 97.0 F 02/13/25 11:46 Pulse 127 H 02/13/25 11:46 BP 126/68 02/13/25 11:46 Pulse Ox 97 02/13/25 11:46 Oxygen Delivery Method Room Air 02/13/25 11:46 BMI result Body Mass Index 35.2 Tobacco/Smoking Status: Tobacco use Status Tobacco use date assessed 02/13/25 02/13/25 11:49 Patient Tobacco Use Status Never used Tobacco 02/13/25 11:49 Tobacco use type Cigarette 02/13/25 11:49 e-Cigarette/Vaping Use Never Used 02/13/25 11:49 PHQ-9: PHQ-9 Score PHQ-9: Total score 1 02/13/25 12:12 Depression Screening Interpretation: Negative Thrive Assessment: Date of Thrive Assessment Date Thrive assessed 11/15/24 02/13/25 11:49 Const General: alert; No acute distress Eyes Conjunctivae: conjunctivae normal Resp Auscultation: clear to auscultation bilaterally Cardio Rate: regular rate Rhythm: regular rhythm GI Inspection: Yes normal to inspection Extrem General: Yes normal to inspection and No edema Office Procedures Flu Questionnaire Does the patient have a severe egg allergy?: No Does the patient have severe life threatening allergies?: No Does the patient have a fever or illness today?: No Has the patient ever had Guillain-[place] Syndrome?: No Has the patient ever had any past reaction to a flu shot?: No Immunizations Fluarix [id number] (PF) 45 mcg (15 mcg x 3)/0.5 mL IM syringe Performing Provider: Jim Prather MD [facility] Administered by: Mónica Mon CMA on 02/13/25 12:12 Dose Route Admin Location Dispensed Lot Number Expiration Date NDC [employer] 0.5 mL IM Left Deltoid 0.5 mL [id number] 10/14/25 [id number] [employer] VIS Given Date VIS Provided VIS Publication Date 02/13/25 Single Vaccine 24 Eligibility Eligibility Date Funding Source Not [facility] Eligible 02/13/25 Private Coding Level of Care Code Est Pt Level 4 (16115) Complex EM visit Add On G2211 Diagnoses ADHD F90.9 Generalized anxiety disorder F41.1 Hypercholesterolemia E78.00 Obesity (BMI 30-39.9) E66.9 LFT elevation R79.89 Hepatic steatosis K76.0 Allergic rhinitis J30.9 Hemorrhoids K64.9 Assessment & Plan Assessment & Plan (1) ADHD: Comment: Foot it Code(s): F90.9 - Attention-deficit hyperactivity disorder, unspecified type Category: Medical Plan: Discussed about the medication and the fast heart rate (2) Generalized anxiety disorder: Comment: footit Code(s): F41.1 - Generalized anxiety disorder Category: Medical Plan: Continue with present medication and counseling and therapy (3) Hypercholesterolemia: Code(s): E78.00 - Pure hypercholesterolemia, unspecified Category: Medical Plan: Avoid fried foods, chicken skin, eggs, butter margarine, pastries and meat. Be it pork or beef they have a lot of cholesterol LDL goal of less than 130 and triglyceride of less than 150 (4) Obesity (BMI 30-39.9): Code(s): E66.9 - Obesity, unspecified Category: Medical Plan: Diet and exercise (5) LFT elevation: Code(s): R79.89 - Other specified abnormal findings of blood chemistry Category: Medical Plan: Discussed about repeating the blood work as well as getting hepatitis profile (6) Hepatic steatosis: Code(s): K76.0 - Fatty (change of) liver, not elsewhere classified Category: Medical Plan: Low-fat diet and exercise (7) Allergic rhinitis: Code(s): J30.9 - Allergic rhinitis, unspecified Category: Medical (8) Hemorrhoids: Code(s): K64.9 - Unspecified hemorrhoids Category: Medical Plan History of Present Illness The patient is a 50-year-old obese male presenting for a follow-up visit for hepatic steatosis and medication refills, as well as a new complaint of facial inflammation. His past medical history is significant for ADHD, migraines, generalized anxiety disorder, and a history of alcohol abuse. The patient was last seen in November, with the last blood work done in February 2024 showing a normal blood count, electrolytes, and renal function, but elevated liver function tests with one value at 49. His cholesterol was also elevated at 135. An ultrasound in March 2024 confirmed hepatic steatosis, and he was advised to have repeat blood tests. The patient underwent a colonoscopy in August 2023. Regarding his new symptoms, the patient reports facial inflammation that has been present for over a month, which fluctuates but is now constant. This is associated with ear pain, particularly in one ear where he has a history of hear ing loss from a childhood infection. 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 The patient also expresses concern about a fast heart rate, which he notes has always been high, even off medication. He attributes his in-office tachycardia to social anxiety, stating that his heart rate is lower when measured at home. He reports intermittent hemorrhoid flare-ups, which he associates with constipation, and uses Proctosol cream as needed. He denies any blood in his stool. Health Maintenance The patient's tetanus immunization is up to date. An influenza vaccine was recommended and administered during the visit. Social History - Substance Use: Has a history of alcohol abuse. - Occupational Exposure: Reports exposure to a lot of dust at his workplace. Review of Systems - HEENT: Reports facial inflammation for over a month and ear pain. - Reports feeling stuffy. - He has a history of hearing loss in one ear. - Denies sneezing and states hearing is currently okay. - Cardiovascular: Reports a fast heart rate, but notes it is lower at home. - Respiratory: Reports breathing is okay. - GI: Reports regular bowel movements, though has occasional flare-ups of hemorrhoids sometimes brought on by constipation. - Denies blood in stool. - : Reports peeing is okay. Physical Exam - Vitals: Oxygen saturation was initially 93% but improved with repositioning of the pulse oximeter. - HEENT: Examination of the ears revealed some non-occlusive cerumen in one ear, while the other ear was clear. - There was no pain with manipulation of the pinna. - Examination of the throat showed findings consistent with allergies. - Respiratory: Lungs were clear to auscultation. Results - Labs (February 2024): Normal blood count, electrolytes, and renal function. - Elevated liver function tests were noted, with one value at 49. - Cholesterol was elevated at 135. - Imaging (March 2024): Ultrasound showed hepatic steatosis. - Procedures: A colonoscopy was performed in August 2023. Plan Patient was informed and verbally consented to the use of an ambient scribe for clinic note documentation during this visit. 1. Hepatic Steatosis And Elevated Liver Enzymes The patient is being followed for elevated liver enzymes and hepatic steatosis, confirmed on ultrasound, in the context of a history of alcohol abuse. The plan is to order repeat blood work, including a liver function panel and a hepatitis profile, to monitor for any changes. The patient was counseled on implementing a low-fat diet and regular exercise. 2. Allergic Rhinitis And Facial Swelling The patient's complaint of facial inflammation and ear pain, ongoing for a month, is assessed to be likely secondary to allergies, given the physical exam findings of his throat. The swelling over the parotid glands may be a result of ductal obstruction from inflammation. A trial of Zyrtec once daily at night was prescribed to see if it alleviates the symptoms. If the medication trial is unsuccessful, further evaluation with an ultrasound or CT scan of the glands will be considered. 3. Hypercholesterolemia Given the history of elevated cholesterol, the management plan includes lifestyle modification with diet and exercise, aiming for an LDL goal of less than 130 mg/dL and triglycerides less than 150 mg/dL. Lipid levels will be rechecked with the upcoming blood work. 4. Anxiety, Adhd, And Tachycardia The patient's tachycardia is likely multifactorial, related to both his generalized anxiety disorder (white coat phenomenon) and as a potential side effect of his ADHD medication. Since his heart rate is reported to be lower at home, the plan is to continue current medications, including methylphenidate and clonazepam, as well as ongoing counseling and therapy. The patient will monitor his heart rate at home. Prescriptions for methylphenidate, clonazepam, and trazodone were refilled. 5. Hemorrhoids For intermittent hemorrhoid flare-ups, a prescription for Proctosol cream was refilled for as-needed use. Discussion Notes I discussed with the patient the plan for his care. We reviewed the need to monitor his elevated liver enzymes and hepatic steatosis with repeat blood work, including a hepatitis profile, and I emphasized the importance of a low-fat diet and exercise. Regarding the new facial swelling and ear pain, I explained that it is most likely related to allergies and could be causing a blockage of the parotid glands. We discussed two options: proceeding with imaging or trying allergy medication first. He agreed to a trial of Zyrtec, which I prescribed. I addressed his concerns about tachycardia, explaining it is likely related to his anxiety, given his report of lower heart rates at home. We will continue his current psychotropic medications and he will monitor his heart rate at home. I refilled his prescriptions for methylphenidate, clonazepam, trazodone, and Proctosol cream. Finally, we discussed preventative care, and he received a flu shot during the visit. Patient Instructions - Please go to the lab to have your blood drawn to check on your liver and cholesterol. - You do not need to fast for this test, and you can walk in. - Take one tablet of Zyrtec (cetirizine) once a day for your allergies and facial swelling. - It is best to take it at nighttime as it may cause sleepiness. - Continue your current medications, including methylphenidate, clonazepam, and trazodone as prescribed. - Continue with a low-fat diet and regular exercise. - Use the Proctosol cream for hemorrhoid flare-ups as needed. - You received your flu vaccine today in the office. - All your requested prescription refills, plus the new prescription for Zyrtec, have been sent to [facility]. Orders: Orders Influenza [id number] Immunization Today Z23 - Encounter for immunization Medications: New cetirizine (Zyrtec) 10 mg PO DAILY PRN 90 caps 0RF allergy symptoms J30.9 - Allergic rhinitis, unspecified hydrocortisone 2.5% (Proctosol HC) 1 appl CO BID-QID PRN 30 grams 1RF hemorrhoids K64.9 - Unspecified hemorrhoids Refilled methylphenidate HCl ER 54 mg PO DAILY 30 tabs 0RF F90.9 - Attention-deficit hyperactivity disorder, unspecified type clonazepam 0.5 mg PO BID PRN 60 tabs 0RF anxiety F41.1 - Generalized anxiety disorder trazodone 50 mg PO BEDTIME PRN 90 tabs 1RF sleep G47.00 - Insomnia, unspecified
--- OUTSIDE RECORDS SUMMARY | 2025-02-13 14:45 | XMS_ITS | Data Portability ---
Author Organization [facility], Main Office Address [address] [facility] [address] [place] [id number] Care Team Providers Care Visitor Use Assistant Name Role Phone LOUANN PRUITT Primary Care Provider Assessment Encounter Date Assessment Date Assessment LastModified [...] Time Details Appointments None record ed. Lab lipid panel, serum 2019 [facility], [address] [place] [address], [address], 0 11:36:53 CMP, serum or plasma 2019 [facility], [address] [place] [address], [address], 0 11:36:53 CBC w/ auto diff 2019 [facility], [address] [place] [address], [address], [address], 0 10:23:51 hepati c functi on panel, serum 2019 [facility], [address] [facility], [address], [place], [address], 0 10:51:55 lipase , serum or plasma 2019 020 [facility], [address] [facility], [address], [place], [address], 0 10:51:56 H pylori igm+ig g+iga Ab, serum 2019 020 [facility], [address] [facility], [address], [place], [address], 0 09:17:53 lipid panel, serum [address], [address] [place] [address], [address], 0 15:07:05 CMP, serum or plasma [address], [address] [place] [address], [address], 0 15:07:05 Referral otolar yngolo gist referr al - Sensat ion of discom fort in the anteri or neck/t rachea on swallo wing saliva . 2022 023 [place] [address] [facility] , [address], [address], [place], [address], 3 10:38:13 nutrit ionist /dieti shine referr al 2019 020 [email or web address] Not available 0 10:04:19 Procedures None record ed. Surgeries None record ed. Imaging electr ocjohnny ogram 2022 023 [email or web address] In-Office Order, Internal Use Only DO Not Attach Compendium DO Not Attach Compendium, Do Not Delete/merge, [id number] 3 14:23:52 electr ocardi ogram 2020 021 In-Office Order, Internal Use Only DO Not Attach Compendium DO Not Attach Compendium, Do Not Delete/merge, [id number] 1 13:29:34 Medication Orders omepra zole 20 mg capsul e,eleanor yed releas e 2022 023 [facility] #[id number], [address] [place], [place], [id number], 3 14:09:05 Procto melodie HC 2.5 % topica l cream perine al applic ator 2019 020 INTERFACE [facility] #61845, [address], [place], [id number], 0 09:56:13 almotr iptan malate 12.5 mg tablet 2019 020 kcolbymarty [facility] #77031, [address], [place], [id number], 3 13:47:04 omepra zole 40 mg capsul e,eleanor yed releas e 2019 020 tere [facility] #75644, [address], [place], [id number], 0 09:15:45 Patient TargetsNo targets recorded. Patient Instructions Encounter Date Encounter Id Patient Instructions Last Modified By Organization Details Last Modified Time 03/03/2020 [id number] hemorrhoids: car e instructions Not available 03/03/2020 10:10:10 high-fiber diet: care instructions Not available 03/03/2020 10:10:10 high cholesterol : care instructions Not available 03/03/2020 09:46:45 heart-healthy diet: care instructions Not available 03/03/2020 09:46:45 diet and exercis e for metabolic syndrome: care instructions Not available 03/03/2020 09:46:44 Starting a Weight-Loss Plan: Care Instructions Not available 03/03/2020 09:56:50 Nutrition Referral and Weight Management Follow-up Information Not available 03/03/2020 09:56:50 Reason for Referral Water Sander/dietitian Refer ral for Body mass index 30+ - obesity Referring Physician: Louann Pruitt, Internal Medicine, Encounter Date: 03/03/2020 Anesthesia Assistant Referral fo r Neck pain Sensation of discomfort in the anterior neck/trachea on swallowing saliva. Referring Physician: Louann Pruitt, Internal Medicine, Encounter Date: 06/03/2022 Results Created Date Observation Date Name Description Value Unit Range Abnormal Flag Note LastModifiedBy Organization Detail LastModifiedTime 09/17/1909/17/2019 CBC w/ auto diff WBC 7.2 K/mm3 (4.0-1 1.0) Not Available [facility] (Centralized Electronic Ordering - All Locations) Patient Can Go To The Location Of Their Choice, 09/17/2019 10:23:51 09/17/1909/17/2019 CBC w/ auto diff RBC 4.82 M/mm3 (4.70- 6.10) Not Available [facility] (Centralized Electronic Ordering - All Locations) Patient Can Go To The Location Of Their Choice, 09/17/2019 10:23:51 09/17/1909/17/2019 CBC w/ auto diff HGB 14.0 gm/dL (13.7- 17.1) Not Available [facility] (Centralized Electronic Ordering - All Locations) Patient Can Go To The Location Of Their Choice, 09/17/2019 10:23:51 09/17/1909/17/2019 CBC w/ auto diff HCT 43.5 % (40.5- 50.0) Not Available [facility] (Centralized Electronic Ordering - All Locations) Patient Can Go To The Location Of Their Choice, 09/17/2019 10:23:51 09/17/1909/17/2019 CBC w/ auto diff MCV 90.2 fL (80.0- 94.0) Not Available [facility] (Centralized Electronic Ordering - All Locations) Patient Can Go To The Location Of Their Choice, 09/17/2019 10:23:51 09/17/1909/17/2019 CBC w/ auto diff MCH 29.0 pg (27.0- 34.0) Not Available [facility] (Centralized Electronic Ordering - All Locations) Patient Can Go To The Location Of Their Choice, 09/17/2019 10:23:51 09/17/1909/17/2019 CBC w/ auto diff MCHC 32.2 g/dL (33.0- 37.0) low Not Available [facility] (Centralized Electronic Ordering - All Locations) Patient Can Go To The Location Of Their Choice, 09/17/2019 10:23:51 09/17/1909/17/2019 CBC w/ auto diff plt 192 K/mm3 (150-4 60) Not Available [facility] (Centralized Electronic Ordering - All Locations) Patient Can Go To The Location Of Their Choice, 09/17/2019 10:23:51 09/17/1909/17/2019 CBC w/ auto diff RDW-SD 41.3 fL (<47.0 ) Not Available [facility] (Centralized Electronic Ordering - All Locations) Patient Can Go To The Location Of Their Choice, 09/17/2019 10:23:51 09/17/1909/17/2019 CBC w/ auto diff MPV 12.3 fL (9.4-1 2.4) Not Available [facility] (Centralized Electronic Ordering - All Locations) Patient Can Go To The Location Of Their Choice, 09/17/2019 10:23:51 09/17/1909/17/2019 CBC w/ auto diff automated NRBC 0.0 #/100 _WBC' s Not Available [facility] (Centralized Electronic Ordering - All Locations) Patient Can Go To The Location Of Their Choice, 09/17/2019 10:23:51 09/17/1909/17/2019 CBC w/ auto diff abs. NRBC 0.0 K/mm3 Not Available [facility] (Centralized Electronic Ordering - All Locations) Patient Can Go To The Location Of Their Choice, 09/17/2019 10:23:51 09/17/1909/17/2019 CBC w/ auto diff neut # 4.2 K/mm3 (1.3-7 .0) Not Available [facility] (Centralized Electronic Ordering - All Locations) Patient Can Go To The Location Of Their Choice, 09/17/2019 10:23:51 09/17/1909/17/2019 CBC w/ auto diff lymph # 1.5 K/mm3 (0.8-3 .1) Not Available [facility] (Centralized Electronic Ordering - All Locations) Patient Can Go To The Location Of Their Choice, 09/17/2019 10:23:51 09/17/1909/17/2019 CBC w/ auto diff mono# 0.7 K/mm3 (0.4-1 .3) Not Available [facility] (Centralized Electronic Ordering - All Locations) Patient Can Go To The Location Of Their Choice, 09/17/2019 10:23:51 09/17/1909/17/2019 CBC w/ auto diff eo # 0.8 K/mm3 (0.0-0 .4) high Not Available [facility] (Centralized Electronic Ordering - All Locations) Patient Can Go To The Location Of Their Choice, 09/17/2019 10:23:51 09/17/1909/17/2019 CBC w/ auto diff baso # 0.0 K/mm3 (0.0-0 .1) Not Available [facility] (Centralized Electronic Ordering - All Locations) Patient Can Go To The Location Of Their Choice, 09/17/2019 10:23:51 09/17/1909/17/2019 CBC w/ auto diff abs. imm gran 0.0 K/mm3 Not Available [facility] (Centralized Electronic Ordering - All Locations) Patient Can Go To The Location Of Their Choice, 09/17/2019 10:23:51 09/17/1909/17/2019 CBC w/ auto diff neut 57.4 % (44-76 ) Not Available [facility] (Centralized Electronic Ordering - All Locations) Patient Can Go To The Location Of Their Choice, 09/17/2019 10:23:51 09/17/1909/17/2019 CBC w/ auto diff lymph 20.8 % (15-43 ) Not Available [facility] (Centralized Electronic Ordering - All Locations) Patient Can Go To The Location Of Their Choice, 09/17/2019 10:23:51 09/17/1909/17/2019 CBC w/ auto diff monocyte 9.7 % (4.5-1 0.5) Not Available [facility] (Centralized Electronic Ordering - All Locations) Patient Can Go To The Location Of Their Choice, 09/17/2019 10:23:51 09/17/1909/17/2019 CBC w/ auto diff eo 11.1 % (0-6) high Not Available [facility] (Centralized Electronic Ordering - All Locations) Patient Can Go To The Location Of Their Choice, 09/17/2019 10:23:51 09/17/1909/17/2019 CBC w/ auto diff baso 0.6 % (0-2) Not Available [facility] (Centralized Electronic Ordering - All Locations) Patient Can Go To The Location Of Their Choice, 09/17/2019 10:23:51 09/17/1909/17/2019 CBC w/ auto diff imm gran 0.4 % Not Available [facility] (Centralized Electronic Ordering - All Locations) Patient Can Go To The Location Of Their Choice, 09/17/2019 10:23:51 09/17/1909/17/2019 hepat ic funct ion panel , serum bilirubin,to julia 0.6 mg/dL (0-1.2 ) Not Available [facility] (Centralized Electronic Ordering - All Locations) Patient Can Go To The Location Of Their Choice, 09/17/2019 10:51:55 09/17/1909/17/2019 hepat ic funct ion panel , serum bilirubin, direct 0.1 mg/dL (0-0.3 ) Not Available [facility] (Centralized Electronic Ordering - All Locations) Patient Can Go To The Location Of Their Choice, 09/17/2019 10:51:55 09/17/1909/17/2019 hepat ic funct ion panel , serum indirect bilirubin 0.5 mg/dL (0.0-0 .7) Not Available [facility] (Centralized Electronic Ordering - All Locations) Patient Can Go To The Location Of Their Choice, 09/17/2019 10:51:55 09/17/1909/17/2019 hepat ic funct ion panel , serum albumin 4.5 gm/dL (3.4-4 .8) Not Available [facility] (Centralized Electronic Ordering - All Locations) Patient Can Go To The Location Of Their Choice, 09/17/2019 10:51:55 09/17/1909/17/2019 hepat ic funct ion panel , serum AST 21 U/L (0-38) Not Available [facility] (Centralized Electronic Ordering - All Locations) Patient Can Go To The Location Of Their Choice, [facility] 09/17/2019 10:51:55 09/17/19 20 09/17/2019 hepat ic funct ion panel , serum ALT 16 U/L (0-41) Not Available [facility] (Centralized Electronic Ordering - All Locations) Patient Can Go To The Location Of Their Choice, [id number] 09/17/2019 10:51:55 09/17/19 20 09/17/2019 hepat ic funct ion panel , serum alk phos 64 U/L (40-12 9) Not Available [facility] (Centralized Electronic Ordering - All Locations) Patient Can Go To The Location Of Their Choice, [id number] 09/17/2019 10:51:55 09/17/1909/17/2019 hepat ic funct ion panel , serum total protein 6.4 gm/dL (6.2-8 .2) Not Available [facility] (Centralized Electronic Ordering - All Locations) Patient Can Go To The Location Of Their Choice, [id number] 09/17/2019 10:51:55 09/17/1909/17/2019 lipas e, serum or plasm a lipase 22 U/L (13-60 ) Not Available [facility] (Centralized Electronic Ordering - All Locations) Patient Can Go To The Location Of Their Choice, [id number] 09/17/2019 10:51:56 09/17/1909/18/2019 H pylor i igm+i gg+ig a Ab, [...] INFEC TION FROM COLON IZATI ON BY LUCA TERAN. Not Available [facility] (Centralized Electronic Ordering - All Locations) Patient Can Go To The Location Of Their Choice, [id number] 09/18/2019 09:17:53 09/23/19 21 09/22/2020 elect rocar diogr am No observ ation record ed. In-Office Order Internal Use Only DO Not Attach Compendium DO Not Attach Compendium, Do Not Delete/merge, [id number] 09/22/2020 13:41:25 09/23/19 21 elect rocar diogr am No observ ation record ed. In-Office Order Internal Use Only DO Not Attach Compendium DO Not Attach Compendium, Do Not Delete/merge, [id number] 09/22/2020 10:31:10 05/03/19 23 05/03/2022 elect rocar diogr am No observ ation record ed. [email or web address] In-Office Order Internal Use Only DO Not Attach Compendium DO Not Attach Compendium, Do Not Delete/merge, [id number] 05/03/2022 22:54:03 05/03/19 23 elect rocar diogr am No observ ation record ed. [email or web address] In-Office Order Internal Use Only DO Not Attach Compendium DO Not Attach Compendium, Do Not Delete/merge, [id number] 05/23/2022 10:45:53 Result Notes None recorded. Problems Name Problem SNOMED Code Status Onset Date Resolution Date Notes Provider Name and Address Organization Details Recorded Time Hyperhid rosis 370495056 Active Not Available [facility] 2 02:18:57 Attentio n deficit hyperact ivity disorder , predomin antly inattent roberto type 49345330 Active Not Available [facility] 2 02:18:57 Hemorrho ids 62255235 Active Not Available [facility] 2 02:18:57 Fatigue 43563822 Completed 09/08/2016 Sharron dodson [place] [facility] 7 08:33:44 Breast lump 11193704 Completed 09/08/2016 Sharron dodson [facility] 7 08:33:48 Hyperlip idemia 71496039 Active Not Available [facility] 2 02:18:57 Pain in left foot 16649880987 9107 Completed 09/08/2016 Sharron Kimmie dodson, [facility] 7 08:33:32 Administ ration of bacteria l and viral vaccine Completed 200711/05/2013 RECORDED 07/05/19 08 2:56PM BY LUCIE RAMIREZ MD, OFFICE VISIT Lucie dodson, [facility] 6 10:13:52 Administ ration of bacteria l and viral vaccine Completed 200711/25/2013 RECORDED 07/05/19 08 2:56PM BY LUCIE RAMIREZ MD, OFFICE VISIT Lucie dodson, [facility] 6 10:13:52 Epidermo id cyst of skin 212888376 Completed 200711/05/2013 RECORDED 01/31/20 08 11:32AM BY STANTON TEJADA ON/ADDEN DUM [facility] [place] 6 10:13:52 Seborrhe ic dermatit is 00198775 Completed 200711/05/2013 RECORDED 01/31/20 08 11:32AM BY STANTON TEJADA ON/ADDEN MARTÍNEZ dodson, [facility] 6 10:13:52 Epidermo id cyst of skin 096912073 Completed 200711/25/2013 RECORDED 01/31/20 08 11:32AM BY STANTON TEJADA ON/ADDEN MARTÍNEZ dodson, [facility] 6 10:13:52 Seborrhe ic dermatit is 28006483 Completed 200711/25/2013 RECORDED 01/31/20 08 11:32AM BY OJ TARA, ANNOTATI ON/ADDEN DUM Lucie D'Alessand ro null, [facility] 6 10:13:52 Esssong l hyperten jp 52135841 Completed 201011/05/2013 STORY: PT HAS ELEV BP AT TIMES, NO CONSISTE ND DX OF HTN.; RECORDED 09/01/19 11 10:35AM BY AMIE CHAVEZ MA, ANNOTATI ON/ADDEN DUM Lucie D'Alessand ro null, [facility] 6 10:13:52 Esssong l hyperten jp 94297739 Completed 201011/25/2013 STORY: PT HAS ELEV BP AT TIMES, NO CONSISTE ND DX OF HTN.; RECORDED 09/01/19 11 10:35AM BY AMIE CHAVEZ MA, ANNOTATI ON/ADDEN DUM Lucie D'Alessand ro null, [facility] 6 10:13:52 Abnormal weight loss 901412916 Completed 201111/05/2013 RECORDED 01/12/20 12 10:40AM BY VERONICA PIKE MA, ANNOTATI ON/ADDEN DUM Lucie D'Alessand ro null, [facility] 6 10:13:52 Anxiety disorder 564708142 Completed 201111/05/2013 RECORDED 01/12/20 12 10:40AM BY VERONICA PIKE MA, ANNOTATI ON/ADDEN DUM Lucie D'Alessand ro null, [facility] 6 10:13:52 Chest pain 90693650 Completed 201111/05/2013 IMPRESSI ON: ATYPICAL /CHEST WALL PAIN; RECORDED 01/12/20 12 10:40AM BY VERONICA PIKE MA, ANNOTATI ON/ADDEN DUM Lucie D'Alessand ro null, [facility] 6 10:13:52 Brittany adams [id number] Completed 201111/05/2013 RECORDED 01/12/20 12 10:40AM BY VERONICA PIKE MA, ANNOTATI ON/ADDEN DUM Lucie D'Alessand ro null, [facility] 6 10:13:52 External hemorrho ids 79537404 Completed 201111/05/2013 RECORDED 01/12/20 12 10:40AM BY VERONICA PIKE MA, ANNOTATI ON/ADDEN DUM Amie skelton MA null, [facility] 3 16:49:34 Influenz a vaccine needed 30382217198 06 Completed 201111/05/2013 RECORDED 01/12/20 12 12:56PM BY VERONICA PIKE MA, OFFICE VISIT Lucie Dela Cruz ro null, [facility] 6 10:13:52 Knee pain Completed 201111/05/2013 RECORDED 01/12/20 12 10:40AM BY VERONICA PIKE MA, ANNOTATI ON/ADDEN DUM Lucie Renteriaand ro null, [facility] 6 10:13:52 Injury of knee 931730804 Completed 201111/05/2013 STORY: RIGHT THIGH/HE MOTOMA; RECORDED 01/12/20 12 10:39AM BY VERONICA PIKE MA, ANNOTCORBIN ON/ADDEN DUM Lucie Renteriaand ro null, [facility] 6 10:13:52 Low back pain 874945239 Completed 201111/05/2013 RECORDED 01/12/20 12 10:40AM BY VERONICA PIKE MA, ANNOTATI ON/ADDEN DUM Lucie Renteriaand ro null, [facility] 6 10:13:52 Malaise and fatigue 567896107 Completed 201111/05/2013 RECORDED 01/12/20 12 10:40AM BY VERONICA PIKE MA, ANNOTATI ON/ADDEN DUM Lucie CamarilloAlessand ro null, [facility] 6 10:13:52 Pain in eye Completed 201111/05/2013 STORY: RIGHT EYE PAIN S/P INJURY 1-2 WEEKS AGO; IMPRESSI ON: NORMAL FLOURES EIN EXAM, REFER TO EYE DOCTOR FOR SLIT LAMP EXAM; RECORDED 01/12/20 12 10:40AM BY VERONICA PIKE MA, ANNOTATI ON/ADDEN DUM Lucie D'Alessand ro null, [facility] 6 10:13:52 Eruption [id number] Completed 201111/05/2013 RECORDED 01/12/20 12 10:40AM BY VERONICA PIKE MA, ANNOTATI ON/ADDEN DUM Lucie D'Alessand ro null, [facility] 6 10:13:52 Spondylo sis 7954191 Completed 201111/05/2013 RECORDED 01/12/20 12 10:40AM BY VERONICA PIKE MA, ANNOTATI ON/ADDEN DUM Lucie D'Alessand ro null, [facility] 6 10:13:52 Acquired trigger finger 0709708 Completed 201111/05/2013 RECORDED 01/12/20 12 10:40AM BY VERONICA PIKE MA, ANNOTATI ON/ADDEN DUM Lucie D'Alessand ro null, [facility] 6 10:13:52 Abnormal weight loss 712136528 Completed 201111/25/2013 RECORDED 01/12/20 12 10:40AM BY VERONICA PIKE MA, BERNARDATI ON/ADDEN DUM Lucie D'Alessand ro null, [facility] 6 10:13:52 Anxiety disorder 765731091 Completed 201111/25/2013 RECORDED 01/12/20 12 10:40AM BY VERONICA PIKE MA, ANNOTATI ON/ADDEN DUM Lucie D'Alessand ro null, [facility] 6 10:13:52 Chest pain 85402342 Completed 201111/25/2013 IMPRESSI ON: ATYPICAL /CHEST WALL PAIN; RECORDED 01/12/20 12 10:40AM BY VERONICA PIKE MA, ANNOTATI ON/ADDEN DUM Lucie D'Alesudhir ro null, [facility] 6 10:13:52 Vanessagalen adams [id number] Completed 201111/25/2013 RECORDED 01/12/20 12 10:40AM BY VERONICA PIKE MA, ANNOTATI ON/ADDEN DUM Lucie CamarilloAlessand ro null, [facility] 6 10:13:52 External hemorrho ids 14077561 Completed 201111/25/2013 RECORDED 01/12/20 12 10:40AM BY VERONICA PIKE MA, BERNARDATI ON/ADDEN DUM Amie skelton MA null, [facility] 3 16:49:34 Influenz a vaccine needed 57568166618 06 Completed 201111/25/2013 RECORDED 01/12/20 12 12:56PM BY VERONICA PIKE MA, OFFICE VISIT Lucie Dela Cruz ro null, [facility] 6 10:13:52 Knee pain Completed 201111/25/2013 RECORDED 01/12/20 12 10:40AM BY VERONICA PIKE MA, ANNOTATI ON/ADDEN DUM Lucie Chauhan'Alessand ro null, [facility] 6 10:13:52 Injury of knee 226422372 Completed 201111/25/2013 STORY: RIGHT THIGH/HE MOTOMA; RECORDED 01/12/20 12 10:39AM BY VERONICA PIKE MA, ANNOTATI ON/ADDEN DUM Lucie Chauhan'Alessand ro null, [facility] 6 10:13:52 Low back pain 736736125 Completed 201111/25/2013 RECORDED 01/12/20 12 10:40AM BY VERONICA PIKE MA, ANNOTATI ON/ADDEN DUM Lucie CamarilloAlessand ro null, [facility] 6 10:13:52 Malaise and fatigue 051368328 Completed 201111/25/2013 RECORDED 01/12/20 12 10:40AM BY VERONICA PIKE MA, ANNOTATI ON/ADDEN DUM Lucie D'Alessand ro null, [facility] 6 10:13:52 Pain in eye Completed 201111/25/2013 STORY: RIGHT EYE PAIN S/P INJURY 1-2 WEEKS AGO; IMPRESSI ON: NORMAL FLOURESC EIN EXAM, REFER TO EYE DOCTOR FOR SLIT LAMP EXAM; RECORDED 01/12/20 12 10:40AM BY VERONICA PIKE MA, ANNOTATI ON/ADDEN DUM Lucie D'Alessand ro null, [facility] 6 10:13:52 Eruption 138758579 Completed 201111/25/2013 RECORDED 01/12/20 12 10:40AM BY VERONICA PIKE MA, ANNOTATI ON/ADDEN DUM Lucie D'Alessand ro null, [facility] 6 10:13:52 Spondylo sis 9734831 Completed 201111/25/2013 RECORDED 01/12/20 12 10:40AM BY VERONICA PIKE MA, ANNOTATI ON/ADDEN DUM Lucie D'Alessand ro null, [facility] 6 10:13:52 Acquired trigger finger 3613307 Completed 201111/25/2013 RECORDED 01/12/20 12 10:40AM BY VERONICA PIKE MA, ANNOTATI ON/ADDEN DUM Lucie D'Alessand ro null, [facility] 6 10:13:52 Adult health examinat ion Completed 201311/05/2013 RECORDED 07/18/19 14 9:16AM BY TERRIE ALAS MA, ANNOTCORBIN ON/ADDEN DUM Lucie D'Alessand ro null, [facility] 6 10:13:52 Pain in limb 86346454 Completed 201311/05/2013 RECORDED 07/18/19 14 9:16AM BY TERRIE ALAS MA, ANNOTATI ON/ADDEN DUM Lucie D'Alessand ro null, [facility] 6 10:13:52 Adult health examinat ion Completed 201311/25/2013 RECORDED 07/18/19 14 9:16AM BY TERRIE ALAS MA, ANNOTATI ON/[facility] null, [facility] 6 10:13:52 Pain in limb 38233896 Completed 201311/25/2013 RECORDED 07/18/19 14 9:16AM BY TERRIE ALAS MA, ANNOTATI ON/[facility] Lucie perkins null, [facility] 6 10:13:52 Child attentio n deficit disorder 558768123 Completed 201308/26/2016 STORY: PA OR [employer] FOOTIT/ FARIDEH PRESCRIB ES CONCERTA ; RECORDED 08/03/19 14 9:40AM BY TERRIE ALAS MA, OFFICE VISIT Removal Reason: not correct diagnosi s Mouna Ortez ivory, [facility] 7 13:57:19 Anxiety state 287871091 Active 2013 Not Available [facility] 2 02:18:57 Patient status finding [id number] Completed 201309/08/2016 RECORDED 08/03/19 14 9:41AM BY TERRIE ALAS MA, OFFICE VISIT Sharron dodson, [facility] 7 08:33:11 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 201311/05/2013 IMPRESSI ON: CALL IN 3 WKS IF NOT IMPROVIN G; RECORDED 08/03/19 14 9:40AM BY TERRIE ALAS MA, ANNOTATI ON/[facility] Lucie dodson, [facility] 6 10:13:52 Elevated blood-pr essure reading without diagnosi s of hyperten jp 165869524 Active 2013 Not Available [facility] 2 02:18:57 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 9 10:13:35 Migraine 43060705 Active 2013 Not Available [facility] 2 02:18:57 Raynaud' s disease 616160602 Completed 201307/18/2018 Louann Pruitt PA-C [address], [place], [address] , [facility] 9 10:14:18 Dyspnea 673939310 Completed 201307/18/2018 Louann Pruitt PA-C [address], [place], [address] , [facility] 9 10:14:22 Tietze's disease 30802037 Completed 201311/25/2013 IMPRESSI ON: CALL IN 3 WKS IF NOT IMPROVIN G; RECORDED 08/03/19 14 9:40AM BY TERRIE ALAS MA, ANNOTATI ON/[facility] [place] 6 10:13:52 Fracture of multiple ribs 9746351 Active 2016 Not Available [facility] 2 02:18:57 Fall down stairs Completed 201607/18/2018 Louann Pruitt PA-C [address], [place], [address] , [facility] 9 10:01:11 External hemorrho ids 93443747 Active 2019 JOHNNY Hu, [facility] 3 16:49:34 Obesity 956267545 Active 2019 Not Available [facility] 2 02:18:57 Notes:Some problems listed i n Document: #[id number] could not be added to this patient's chart. Please review this document and add these problems to the patient's chart manually as needed. Problem Notes None recorded. Procedures Surgical History Date Name Laterality Status Provider Name and Address Organization Details Recorded Time Cholecystectomy completed Chelsy chen [facility] 10/26/2015 09:38:30 Other completed Chelsy Anderson [facility] 10/26/2015 09:38:30 Imaging Results None recorded. Procedure Notes None recorded. Medical Equipment None Reported. Allergies Allergen ID Allergen Name Allergen Category Reaction Reaction Severity Criticality Documentation Date Start Date Code Code System Note Provider Name and Address Organization Details Recorded Time 62745 Substance with sulfonami de structure and antibacte rial mechanism of action (substanc e) medicatio n Not available Not available Not available 06/25/20142013 99638 8003 [facility] [place] 5 16:04:25 Medications Name Sig Start Date [...] 14 9:52AM BY TERRIE ALAS MA, OFFICE VISIT;[facility] ER/FOOTI T Not Available Not Available Not [...] 11 6:40PM BY LUCIE RAMIREZ MD, ANNOTATI ON/ DUM; Not Available Not Available Not Available [...] 08/03/19 14 8:54AM BY HERBERTH ESCALERA, ANNOTATI ON/; Not Available Not Available Not Available Proctozon [...] 12 1:14PM BY LUCIE RAMIREZ MD, ANNOTATI ON/WILLIS DUM; Not Available Not Available Not Available [...] Available Not Available Vitals Date Recorded Body height Body mass index (BMI) Body weight Heart rate Oxygen saturation Oxygen saturation in Arterial blood by Pulse oximetry Body temperature Heart rate Systolic And Diastolic Provider Name and Address Organization Details Last Updated DateTime 3 168.91 cm 33.9 kg/m2 52746.1 7 g 120 /min 98 % 98 % 96.6 [degF] 109 /min 128/84 mm[Hg] [facility] 3 13:48:43 Date Recorded Body height Body mass index (BMI) Body weight Heart rate Oxygen saturation Oxygen saturation in Arterial blood by Pulse oximetry Body temperature Systolic And Diastolic Provider Name and Address Organization Details Last Updated DateTime 3 168.91 cm 33.4 kg/m2 06746.4 g 85 /min 98 % 98 % 98.2 [degF] 118/74 mm[Hg] Roula Ham MA [facility] 3 09:27:38 Date Recorded Body height Body mass index (BMI) Body weight Oxygen saturation Oxygen saturation in Arterial blood by Pulse oximetry Heart rate Body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
== END 2025-02-13 12:23 | disposition home or self-care (01) ==
LOC: HO.HMCH 11:46
PROVIDERS: PCP Internal Medicine; Visit Provider Internal Medicine
DX: E78.00 Pure hypercholesterolemia, unspecified (principal); F90.9 Attention-deficit hyperactivity disorder, unspecified type; E66.9 Obesity, unspecified; Z68.35 Body mass index [BMI] 35.0-35.9, adult; F41.1 Generalized anxiety disorder; R79.89 Other specified abnormal findings of blood chemistry; K76.0 Fatty (change of) liver, not elsewhere classified; J30.9 Allergic rhinitis, unspecified; K64.9 Unspecified hemorrhoids; Z23 Encounter for immunization

== ENCOUNTER → 2025-02-13 11:45 | Outpatient (BNVA) | payer BC, SELFPAY | PROVIDERS: PCP Internal Medicine; Visit Provider Internal Medicine | DX: F41.1 Generalized anxiety disorder (principal); F90.9 Attention-deficit hyperactivity disorder, unspecified type; E78.00 Pure hypercholesterolemia, unspecified; E66.9 Obesity, unspecified; R79.89 Other specified abnormal findings of blood chemistry; K76.0 Fatty (change of) liver, not elsewhere classified; J30.9 Allergic rhinitis, unspecified; F41.9 Anxiety disorder, unspecified; R00.0 Tachycardia, unspecified; K64.9 Unspecified hemorrhoids; Z23 Encounter for immunization | CPT/HCPCS: 90471; 90656; 96127 ==